=== PATIENT | female | born 2000 | race Caucasian/White ===

== ENCOUNTER 2021-01-19 20:27 | Emergency (ER) | payer BC, MEDICAID ==
[2021-01-19] MEDS ORDERED: Sodium Chloride 0.9% 10 ML Syringe FLUSH PRN (20:45)
[2021-01-19 20:50] VITALS: BP 130/57; PULSE 98
[2021-01-19] MEDS ORDERED: Ondansetron 4 MG/2 ML SDV IVPUSH ONE ×2 (20:55→22:19)
[2021-01-19] MEDS ORDERED: HYDROmorphone 0.5 MG/0.5 ML Syringe IVPUSH ONE (20:55)
--- NOTE | 2021-01-19 21:01 | EDM.PDOC ---
ED HPI GENERAL MEDICAL PROBLEM - General Chief Complaint: OIL EXPLORATION ENGINEER Problem Stated Complaint: 7 wks pg vaginal bleeding abdominal pain Time Seen by Provider: 01/19/21 20:44 Source of Information: Reports: Patient, RN Notes Reviewed History Limitations: Reports: No Limitations - History of Present Illness INITIAL COMMENTS - FREE TEXT/NARRATIVE: Patient is a 20-year-old female who presents to the ED for evaluation of her vaginal bleeding and . Patient notes she is about 7 weeks 2 days . Her last menstrual period was on November 30. She is a and she has not established with OIL EXPLORATION ENGINEER yet. Patient notes that she had sexual intercourse at around noon, and developed some bleeding afterwards which was pink-tinged in color. And then around 6 PM tonight, she started has some low pelvic pain, with radiation into her low back. She states that the whole area feels like it is cramping. She notes that the bleeding has become a little bit darker in color she is wearing a pad but has not saturated through it at this point. Patient denies any dysuria, frequency or urgency. She states she is in quite a bit of pain and has taken 2 tablets of Tylenol but this has not provided much for pain relief. She would rate this at a 8 out of 10. She has not had any fevers or chills, cough or shortness of breath. Lower Pelvic Pain Score (Numeric/FACES): 8 Lower Back Pain Score (Numeric/FACES): 8 Vaginal Pain Score (Numeric/FACES): 6 - Related Data Allergies Allergy/AdvReac Type Severity Reaction Status Date / Time milk Allergy Severe Vomiting Verified 01/19/21 20:44 egg Allergy Severe Vomiting Uncoded 01/19/21 20:44 Home Meds: Home Meds Ondansetron [Zofran ODT] 4 mg PO Q8H PRN #30 tab.dis 01/19/21 [Rx] Pnv No.95/Ferrous Fum/Folic AC [ Tablet] 1 tab PO DAILY 01/19/21 [History] Past Medical History Cardiovascular History: Reports: Other (See Below) Other Cardiovascular History: lump on chest Respiratory History: Reports: Asthma Gastrointestinal History: Reports: Irritable Bowel Syndrome Other Gastrointestinal History: states Lactose intolerant and does not eat eggs Genitourinary History: Reports: UTI, Recurrent Other Genitourinary History: history of UTI x2. OIL EXPLORATION ENGINEER History: Reports: Other (See Below) Other OIL EXPLORATION ENGINEER History: laparoscopy to check for endometriosis; inverted uterus Musculoskeletal History: Reports: Fibromyalgia Other Musculoskeletal History: Pectis-carinatum asymetric Neurological History: Reports: Migraines Psychiatric History: Reports: Anxiety, Depression - Past Surgical History GI Surgical History: Reports: Colonoscopy, EGD Female Surgical History: Reports: Other (See Below) Other Female Surgeries/Procedures: exploratory laparoscopy for endometriosis, was negative Social & Family History - Family History Family Medical History: No Pertinent Family History - Tobacco Use Tobacco Use Status *Q: Former Tobacco User Used Tobacco, but Quit: Yes Month/Year Tobacco Last Used: 7 weeks ago - Caffeine Use Caffeine Use: Reports: Soda, Tea Caffeine Use Comment: 5drinks/day - Recreational Drug Use Recreational Drug Type: Reports: Marijuana/Hashish Recreational Drug Use Frequency: Weekly ED ROS GENERAL - Review of Systems Review Of Systems: Comprehensive ROS is negative, except as noted in HPI. ED EXAM - Physical Exam Exam: See Below Exam Limited By: No Limitations General Appearance: Alert, WD/WN, No Apparent Distress, Anxious (slightly) Eye Exam: Bilateral Eye: EOMI, Normal Inspection, PERRL Respiratory/Chest: No Respiratory Distress, Lungs Clear, Normal Breath Sounds, No Accessory Muscle Use, Chest Non-Tender Cardiovascular: Normal Peripheral Pulses, Regular Rate, Rhythm, No Edema GI/Abdominal Exam: Normal Bowel Sounds, Soft, No Distention, No Mass, Tender (suprapubic tenderness) Extremities: Normal Inspection, Normal Capillary Refill Neurological: Alert, Oriented, Normal Cognition, No Motor/Sensory Deficits Psychiatric: Normal Affect, Normal Mood Skin Exam: Warm, Dry, Intact, Normal Color, No Rash Course - Vital Signs Last Recorded V/S: Last Vital Signs Temp 99.6 F 01/19/21 20:49 Pulse 98 01/19/21 20:49 Resp 20 01/19/21 20:49 BP 130/57 L 01/19/21 20:49 Pulse Ox 100 01/19/21 20:49 - Orders/Labs/Meds Orders: Active Orders 24 hr Category Date Time Status Peripheral IV Care [RC] . DIRECTED Care 01/19/21 20:45 Ordered OB Transvaginal [US] Stat Exams 01/19/21 20:45 Ordered PATIENT RETYPE [BBK] Routine Lab 01/19/21 21:46 Ordered Ondansetron [Zofran] Med 01/19/21 22:19 Once 4 mg IVPUSH ONETIME ONE Sodium Chloride 0.9% [Saline Flush] Med 01/19/21 20:45 Ordered 10 ml FLUSH ASDIRECTED PRN Peripheral IV Insertion Adult [OM.PC] Stat Oth 01/19/21 20:45 Ordered Medication Orders Sodium Chloride (Saline Flush) 10 ml FLUSH ASDIRECTED PRN PRN Reason: Keep Vein Open Last Admin: 01/19/21 21:13 Dose: 10 ml Documented by: [id number] Labs: Laboratory Tests 01/19/21 01/19/21 01/19/21 Range/Units 21:05 21:05 21:05 WBC 10.39 H (3.98-10.04) K/mm3 RBC 4.50 (3.98-5.22) M/mm3 Hgb 13.8 (11.2-15.7) gm/dl Hct 41.1 (34.1-44.9) % MCV 91.3 (79.4-94.8) fl MCH 30.7 (25.6-32.2) pg MCHC 33.6 (32.2-35.5) g/dl RDW Std Deviation 42.8 (36.4-46.3) fL Plt Count 285 (182-369) K/mm3 MPV 11.0 (9.4-12.3) fl Neut % (Auto) 72.8 H (34.0-71.1) % Lymph % (Auto) 17.8 L (19.3-51.7) % Davidson % (Auto) 8.2 (4.7-12.5) % Eos % (Auto) 0.9 (0.7-5.8) Baso % (Auto) 0.2 (0.1-1.2) % Neut # (Auto) 7.57 H (1.56-6.13) K/mm3 Lymph # (Auto) 1.85 (1.18-3.74) K/mm3 Davidson # (Auto) 0.85 H (0.24-0.36) K/mm3 Eos # (Auto) 0.09 (0.04-0.36) K/mm3 Baso # (Auto) 0.02 (0.01-0.08) K/mm3 Manual Slide Review Normal smear HCG, Quant 15572.0 mIU/mL Urine Color (Yellow) Urine Appearance (Clear) Urine pH (5.0-8.0) Ur Specific [place] (1.005-1.030) Urine Protein (Negative) Urine Glucose (UA) (Negative) Urine Ketones (Negative) Urine Occult Blood (Negative) Urine Nitrite (Negative) Urine Bilirubin (Negative) Urine Urobilinogen (0.2-1.0) Ur Leukocyte Esterase (Negative) Urine RBC (0-5) /hpf Urine WBC (0-5) /hpf Ur Squamous Epith Cells (0-5) /hpf Urine Bacteria (FEW) /hpf Urine Mucus (FEW) /hpf Blood Type O POSITIVE 01/19/21 Range/Units 21:23 WBC (3.98-10.04) K/mm3 RBC (3.98-5.22) M/mm3 Hgb (11.2-15.7) gm/dl Hct (34.1-44.9) % MCV (79.4-94.8) fl MCH (25.6-32.2) pg MCHC (32.2-35.5) g/dl RDW Std Deviation (36.4-46.3) fL Plt Count (182-369) K/mm3 MPV (9.4-12.3) fl Neut % (Auto) (34.0-71.1) % Lymph % (Auto) (19.3-51.7) % Davidson % (Auto) (4.7-12.5) % Eos % (Auto) (0.7-5.8) Baso % (Auto) (0.1-1.2) % Neut # (Auto) (1.56-6.13) K/mm3 Lymph # (Auto) (1.18-3.74) K/mm3 Davidson # (Auto) (0.24-0.36) K/mm3 Eos # (Auto) (0.04-0.36) K/mm3 Baso # (Auto) (0.01-0.08) K/mm3 Manual Slide Review HCG, Quant mIU/mL Urine Color Dark yellow (Yellow) Urine Appearance Clear (Clear) Urine pH 6.0 (5.0-8.0) Ur Specific [place] > or = 1.030 (1.005-1.030) Urine Protein 2+ H (Negative) Urine Glucose (UA) Negative (Negative) Urine Ketones Negative (Negative) Urine Occult Blood 3+ H (Negative) Urine Nitrite Negative (Negative) Urine Bilirubin 1+ H (Negative) Urine Urobilinogen 1.0 (0.2-1.0) Ur Leukocyte Esterase Negative (Negative) Urine RBC 0-5 (0-5) /hpf Urine WBC 0-5 (0-5) /hpf Ur Squamous Epith Cells 0-5 (0-5) /hpf Urine Bacteria Few (FEW) /hpf Urine Mucus Many H (FEW) /hpf Blood Type Meds: Medications Generic Name Dose Route Start Last Admin Trade Name Freq PRN Reason Stop Dose Admin Sodium Chloride 10 ml 01/19/21 20:45 01/19/21 21:13 Saline Flush FLUSH 10 ml ASDIRECTED PRN Administration Keep Vein Open Discontinued Medications Generic Name Dose Route Start Last Admin Trade Name Freq PRN Reason Stop Dose Admin Hydromorphone HCl 0.5 mg 01/19/21 20:55 01/19/21 21:11 Dilaudid IVPUSH 01/19/21 20:56 0.5 mg ONETIME ONE Administration Ondansetron HCl 4 mg 01/19/21 20:55 01/19/21 21:12 Zofran IVPUSH 01/19/21 20:56 4 mg ONETIME ONE Administration Ondansetron HCl 4 mg 01/19/21 22:19 Zofran IVPUSH 01/19/21 22:20 ONETIME ONE - Re-Assessments/Exams Free Text/Narrative Re-Assessment/Exam: 01/19/21 21:01 Patient presents to the ED for her vaginal bleeding and , we will get a transvaginal ultrasound, get a IV established, get some baseline labs, she was in quite a bit of pain we will give her 0.5 mg IV Dilaudid and 4 mg IV Zofran. 01/19/21 21:52 Patient's laboratory evaluation demonstrates a mildly elevated white count at 10.39. urinalysis is clear for any infection, culture will be sent as there was some blood in the urine just to make sure this is not more of a hemorrhagic cystitis. Patient's blood type is O+. Dr. Tate and I preliminarily looked at it on Still awaiting hCG quantitative level, ultrasound has been done, the PACS system, and there does appear to be an embryo within the uterus, with a heartbeat of 117 bpm. Official radiology read is still pending. 01/19/21 21:57 The hCG quantitative level was 84,180. 01/19/21 22:09 Ultrasound that was done transabdominally, reports a gestational age of 6 weeks 6 days with an estimated due date of 09/09/2021, there is a normal heart rate at 117 bpm. This is in line with the gestational age the patient reported. I did call Dr. Chavis and went over the results, and she feels it would be appropriate to have her do her first OB follow-up in about a month, but earlier if she is having any issues. She would be more than glad to see the patient in consultation however she states that she can see whoever she would like. Departure - Departure Time of Disposition: 22:10 Disposition: Home, Self-Care 01 Condition: Good Clinical Impression: Vaginal bleeding affecting early - Discharge Information *PRESCRIPTION DRUG MONITORING PROGRAM REVIEWED*: No *COPY OF PRESCRIPTION DRUG MONITORING REPORT IN PATIENT DAVID: No Prescriptions: Ondansetron [Zofran ODT] 4 mg PO Q8H PRN #30 tab.dis PRN Reason: Nausea Instructions: Vaginal Bleeding During , First Trimester, [id number] Referrals: Jammie Mcmanus MD [Primary Care Provider] - Forms: ED Department Discharge Additional Instructions: You were evaluated in the ER today regarding your abdominal pain/vaginal bleeding in . You did have some labs drawn, and these were within normal limits, your hCG level was 84,180, your blood type is O+. Your ultrasound demonstrated an intrauterine gestation with a heart rate of 117 bpm. Recommend that you do not lift anything heavier than a gallon of milk (5 lbs), do not engage in sexual activities, try to get as much pelvic rest as possible for the next few days. Please try not to exert yourself, rest and relax, and take it easy. If you are bleeding through more than 1-2 maxi pads every couple hours, this would be cause for concern to return to the ER for immediate management. You were given a prescription for Zofran, for your nausea, you can take 1 tablet dissolvable under your tongue every 8 hours as needed. Please follow up with your OIL EXPLORATION ENGINEER at your next scheduled appointment. I did consult our OIL EXPLORATION ENGINEER on-call about your case, Dr. Jacey Chavis she is located at the [facility], and she believes it would be appropriate to have your first OIL EXPLORATION ENGINEER appointment in about 4 weeks. Since you do not have an OIL EXPLORATION ENGINEER already set up, there are multiple providers in this area; you may call [phone] to obtain an appointment at the [facility] or [phone] to set up at [facility] in [place]. Please return to the ED at any time if your symptoms change or worsen. Sepsis Event Note (ED) - Evaluation Sepsis Screening Result: No Definite Risk - Focused Exam Vital Signs: Vital Signs Temp Pulse Resp BP Pulse Ox 01/19/21 20:49 99.6 F 98 20 130/57 L 100 - My Orders Last 24 Hours: My Active Orders 01/19/21 20:45 Peripheral IV Care [RC] . DIRECTED OB Transvaginal [US] Stat Sodium Chloride 0.9% [Saline Flush] 10 ml FLUSH ASDIRECTED PRN Peripheral IV Insertion Adult [OM.PC] Stat 01/19/21 21:46 PATIENT RETYPE [BBK] Routine 01/19/21 22:19 Ondansetron [Zofran] 4 mg IVPUSH ONETIME ONE - Assessment/Plan Last 24 Hours: My Active Orders 01/19/21 20:45 Peripheral IV Care [RC] . DIRECTED OB Transvaginal [US] Stat Sodium Chloride 0.9% [Saline Flush] 10 ml FLUSH ASDIRECTED PRN Peripheral IV Insertion Adult [OM.PC] Stat 01/19/21 21:46 PATIENT RETYPE [BBK] Routine 01/19/21 22:19 Ondansetron [Zofran] 4 mg IVPUSH ONETIME ONE
--- NOTE | 2021-01-20 08:05 | US ---
First trimester obstetrical ultrasound: Multiple real-time images were obtained transvaginally. Comparison: No prior study is available. Dates: Working JOCELYN: 09/06/21, gestational age 7 weeks 1 day Current ultrasound: JOCELYN 09/09/21, gestational age 6 weeks 5 days Single intrauterine gestational sac is seen. Small embryo is seen. No subchorionic hemorrhage is noted. Maternal ovaries are within normal limits. Measurements: Aten-rump length: 0.79 cm - 6 weeks 5 days Heart rate: 117 bpm Impression: 1. Single intrauterine fetus. Dates as noted above. 2. Heart rate is low most likely relating to the age of . Nothing acute is appreciated. Diagnostic code #1 I agree with preliminary report from [facility], finalized on 01/19/21, 11:03 PM LEVER OPERATOR
== END 2021-01-19 22:50 | disposition home or self-care (01) ==
LOC: JD.ED 20:27 → SUPCPDRO 20:27 → JD.ED 22:50
DX: O20.9 Hemorrhage in early pregnancy, unspecified (principal); O99.511 Diseases of the respiratory system complicating pregnancy, first trimester; J45.909 Unspecified asthma, uncomplicated; Z91.011 Allergy to milk products; Z91.012 Allergy to eggs; Z3A.01 Less than 8 weeks gestation of pregnancy; Z87.891 Personal history of nicotine dependence
CPT/HCPCS: 36415; 76817; 81001; 84702; 85025; 86900; 86901; 96374; 96375; 96376; 99284; J1170; J2405

== ENCOUNTER 2021-03-11 22:54 | Emergency (ER) | payer MEDICAID ==
[2021-03-11 23:10] VITALS: BP 150/63; PULSE 97
--- NOTE | 2021-03-11 23:42 | EDM.PDOC ---
ED HPI GENERAL MEDICAL PROBLEM - General Chief Complaint: LEAF STAMPER Problem Stated Complaint: 14 WKS & CRAMPING Time Seen by Provider: 03/11/21 23:08 Source of Information: Reports: Patient, Significant Other (Boyfriend) History Limitations: Reports: No Limitations - History of Present Illness INITIAL COMMENTS - FREE TEXT/NARRATIVE: Ms. Mcmanus is a 20-year-old woman who is currently 14 weeks 0 days gestation, JOCELYN 09/09/2021, based on an obstetric ultrasound dated 01/19/2021, LMP 11/30/2020, G1, P0, who now presents the ED stating that she developed pelvic cramps yesterday. The cramps radiate into her lower back. They have been waxing and waning, improved if she walks, but worse if she bears down to defecate. No vaginal bleeding. No urinary symptoms. No recent fever. The patient did not take any [id number] medications, however, she does acknowledge that she smokes marijuana daily. The patient states that she had similar symptoms about 1 month ago, which resolved on their own. Here in the ED tonight, the patient's initial BP is found to be mildly elevated at 150/63, otherwise, she is hemodynamically stable, afebrile, saturating 98% on room air. The patient states that she recently got over a cold, including rhinorrhea and cough. Otherwise, prior to yesterday, the patient denies having a recent fever, chills, sore throat, ear pain, nasal or sinus congestion, cough, dyspnea, chest pain, palpitations, nausea, vomiting, constipation, diarrhea, abdominal pain, urinary symptoms, recent weight gain or weight loss, recent bloody bowel movements or black bowel movements, recent joint aches, headaches, or rashes. The patient's PCP is Corazon Mike NP, in [place]. Her LEAF STAMPER is Dr. Jammie Mcmanus, in [place], [place]. Abdomen Pain Score (Numeric/FACES): 6 - Related Data Allergies Allergy/AdvReac Type Severity Reaction Status Date / Time milk Allergy Severe Vomiting Verified 03/11/21 23:12 sertraline [From Zoloft] Allergy Rash Verified 03/11/21 23:12 egg Allergy Severe Vomiting Uncoded 03/11/21 23:12 Home Meds: Home Meds . [No Known Home Meds] 03/11/21 [History] Past Medical History Respiratory History: Reports: Asthma (suspected, not PFT-tested) Gastrointestinal History: Reports: Irritable Bowel Syndrome : 1 Para: 0 Other LEAF STAMPER History: laparoscopy to check for endometriosis; inverted uterus Neurological History: Reports: Migraines Psychiatric History: Reports: Anxiety (untreated), Depression (untreated), Other (See Below) (Fibromyalgia) - Past Surgical History HEENT Surgical History: Reports: Oral Surgery (dental extractions) GI Surgical History: Reports: Colonoscopy (x 1), EGD (x 1) Female Surgical History: Reports: Other (See Below) (Exploratory laparoscopy for endometriosis -> negative) Social & Family History - Tobacco Use Tobacco Use Status *Q: Former Tobacco User Tobacco Use Within Last Twelve Months: Vaping (Nicotine, THC, and CBD) Years of Tobacco use: 4 Packs/Tins Daily: 1.5 Month/Year Tobacco Last Used: Quit Jan 2021 Tobacco Use Comment: Started smoking at 16 yrs old - Caffeine Use Caffeine Use: Reports: Soda, Tea Caffeine Use Comment: 5drinks/day - Alcohol Use Alcohol Use History: Yes Alcohol Use Frequency: Socially (when not ) - Recreational Drug Use Recreational Drug Use: Yes Drug Use in Last 12 Months: Yes Recreational Drug Type: Reports: Marijuana/Hashish (smokes daily) - Living Situation & Occupation Living situation: Reports: Single, with Significant Other (Boyfriend) Occupation: Unemployed ED ROS GENERAL - Review of Systems Review Of Systems: Comprehensive ROS is negative, except as noted in HPI. ED EXAM - Physical Exam Exam: See Below Exam Limited By: No Limitations General Appearance: Alert, Anxious (the patient quickly alternates between being overly dramatic and perfectly calm), Thin Eye Exam: Bilateral Eye: EOMI, Normal Inspection Ears: Normal External Exam, Hearing Grossly Normal Nose: Normal Inspection Throat/Mouth: Normal Inspection, Normal Lips, Normal Voice, No Airway Compromise Head: Atraumatic, Normocephalic Neck: Normal Inspection, Full Range of Motion Respiratory/Chest: No Respiratory Distress, Lungs Clear, Normal Breath Sounds, No Accessory Muscle Use Cardiovascular: Normal Peripheral Pulses, Regular Rate, Rhythm, No Edema, No Gallop, No JVD, No Murmur, No Rub GI/Abdominal Exam: Normal Bowel Sounds, Soft, No Organomegaly, No Distention, No Abnormal Bruit, No Mass, Tender (Across the entire abdomen, with greater tenderness in the lower abdomen than the upper), Mass (gravid uterus consistent with dates) Back Exam: Normal Inspection, Full Range of Motion, NT Extremities: Normal Inspection, Normal Range of Motion, No Pedal Edema, Normal Capillary Refill Neurological: Alert, Oriented, Normal Cognition, No Motor/Sensory Deficits Psychiatric: Anxious Skin Exam: Warm, Dry, Intact, Normal Color, No Rash Course - Vital Signs Last Recorded V/S: Last Vital Signs Temp 36.6 C 03/11/21 23:07 Pulse 97 03/11/21 23:07 Resp 17 03/11/21 23:07 BP 150/63 H 03/11/21 23:07 Pulse Ox 98 03/11/21 23:07 - Orders/Labs/Meds Meds: Medications Discontinued Medications Generic Name Dose Route Start Last Admin Trade Name Raya PRN Reason Stop Dose Admin Acetaminophen 650 mg 03/12/21 00:21 03/12/21 00:33 Acetaminophen 325 Mg Tab PO 03/12/21 00:22 650 mg NOW ONE Administration - Re-Assessments/Exams Free Text/Narrative Re-Assessment/Exam: 03/11/21 23:38 As above, the patient, who is 14 weeks 0 days gestation based on an obstetric ultrasound performed on 01/19/2021, has been experiencing waxing and waning pelvic cramps without vaginal bleeding since yesterday. Her symptoms are somewhat improved if she walks, worse if she bears down to have a bowel movement. No other symptoms, such as a fever, vomiting, diarrhea, or urinary symptoms. The patient is very histrionic, at times waving her arms instead of answering a question, then, a few moments later, being perfectly calm, particularly when talking to her boyfriend. On examination, the patient reports tenderness to palpation of her entire abdomen, greater in the pelvic region than the upper abdomen. I have ordered heart tones. 03/12/21 00:18 The patient's heart rate is 165 bpm. 03/12/21 00:21 heart rate discussed with the patient and her boyfriend. She appears to be suffering from round ligament pain. I explained that, other than acetaminophen, there are no medicines that we can safely give to treat cramps, such as a muscle relaxant. I recommended therefore that she contact her LEAF STAMPER in [place] tomorrow, as her LEAF STAMPER may have more leeway to prescribe medications that would not be appropriate for me to do so. The patient is agreeable. She will be given acetaminophen prior to discharge. Departure - Departure Time of Disposition: 00:23 Disposition: Home, Self-Care 01 Condition: Good Clinical Impression: Pain of round ligament during - Discharge Information *PRESCRIPTION DRUG MONITORING PROGRAM REVIEWED*: Not Applicable *COPY OF PRESCRIPTION DRUG MONITORING REPORT IN PATIENT DAVID: Not Applicable Instructions: Round Ligament Pain, Pelvic Pain, Female, [id number] Referrals: Jammie Mcmanus MD [Primary Care Provider] - Corazon Mike NP [Ordering Only Provider] - Forms: ED Department Discharge Additional Instructions: You were seen in the emergency room after developing pelvic cramps yesterday, in the setting of being 14 weeks . heart rate were measured at 165 bpm, which is normal for the gestational age. Based on your history, physical exam, and heart rate, you are most likely suffering from round ligament pain, previously known as discomfort of . As discussed, unfortunately, the only medicine that you can safely take to treat round ligament pain is acetaminophen (Tylenol). We recommend that you follow-up with your LEAF STAMPER, Dr. Jammie Mcmanus, in [place], [place], at the next available appointment. If any other problems, please do not hesitate to return to the ER. Sepsis Event Note (ED) - Evaluation Sepsis Screening Result: No Definite Risk - Focused Exam Vital Signs: Vital Signs Temp Pulse Resp BP Pulse Ox 03/11/21 23:07 36.6 C 97 17 150/63 H 98
[2021-03-12] MEDS ORDERED: Acetaminophen 325 MG Tab PO ONE (00:21)
== END 2021-03-12 00:36 | disposition home or self-care (01) ==
LOC: JD.ED 22:54
DX: O99.891 Other specified diseases and conditions complicating pregnancy (principal); R10.2 Pelvic and perineal pain; O99.512 Diseases of the respiratory system complicating pregnancy, second trimester; J45.909 Unspecified asthma, uncomplicated; Z87.891 Personal history of nicotine dependence; Z91.011 Allergy to milk products; Z88.8 Allergy status to other drugs, medicaments and biological substances; Z91.012 Allergy to eggs; Z3A.14 14 weeks gestation of pregnancy
CPT/HCPCS: 99283; A9270; 99282

== ENCOUNTER 2021-08-30 23:25 | Inpatient (IN) | payer MEDICAID ==
[2021-08-31] MEDS ORDERED: Morphine 2 MG/ML SYRINGE ONE (01:51)
[2021-08-31] MEDS ORDERED: Lactated Ringers 1,000 ML ONE (01:51)
[2021-08-31] MEDS ORDERED: Morphine 2 MG/ML SYRINGE IVPUSH PRN (01:53)
[2021-08-31] MEDS ORDERED: Oxytocin/Lactated Ringers 10 UNIT/1,000 ML BAG IV SCH ×2 (01:54→15:22)
[2021-08-31] MEDS ORDERED: Acetaminophen 325 MG Tab PO PRN ×2 (01:54→15:22)
[2021-08-31] MEDS ORDERED: Nalbuphine 10 MG/1 ML Vial IVPUSH PRN (01:54)
[2021-08-31] MEDS ORDERED: Sodium Chloride 0.9% 10 ML Syringe FLUSH PRN (01:54)
[2021-08-31] MEDS: Lactated Ringers 1,000 ML IV SCH ×3 (02:00→06:00)
--- NOTE | 2021-08-31 02:09 | PCM.LDHP ---
L&D History of Present Illness - General Date of Service: 08/31/21 Admit Problem/Dx: Patient Status Order with Admit Dx/Problem 08/31/21 01:54 Patient Status [ADT] Routine Admission Diagnosis/Problem Admission Diagnosis/Problem demise, greater than 22 weeks, antepartum Source of Information: Patient History Limitations: Reports: No Limitations - History of Present Illness Introduction:: Isa Mcmanus is a 21-year-old at 38 weeks 4 days (JOCELYN 09/10/2021) by a 7- week ultrasound who presents with pelvic pain and cramping as well has contractions. She reports that she has been having contractions since the afternoon of 09-18 at around 11 AM. They have gotten progressively worse throughout the day. She states that they are quite painful and are occurring every couple of minutes. She has not really been timing the contractions. She states that she has not felt the baby move for the last 2 to 3 days. She rep orts that she has been having a small amount of bloody discharge with going to the bathroom and wiping but denies any leaking of fluid or vaginal bleeding. She reports that she was first diagnosed with COVID-19 infection on 08/24/2021 and was treated with Regeneron monoclonal antibodies at that time. She had cough and sore throat symptoms at her visit on 08/12/2021 but her COVID- 19 swab was negative at that time. She reports that she did have fevers at home into the low 100s F but it improved with Tylenol on 08/25-08/27. She has been feeling pretty well for the last few days but has only had an ongoing cough. She denies any shortness of breath or difficulty with breathing. She reports that she has been having whole body itching on her abdomen and low back for several days. She reports that she has been having some pain with urination but denies any urinary frequency or urgency. Denies any problems with bowel movements. There was concern for possible demise as the heart tones were not able to be heard with Doppler monitors. Bedside ultrasound performed confirmed demise without any cardiac activity, lack of blood flow through circulatory system on color Doppler and no movement noted. Patient became very distraught after being informed of demise. Timing/Duration: Reports: gradual onset, intermittent (Pain and contractions), getting worse Location, : Reports: Lower back, Pelvic Quality: Reports: Pressure, Stabbing, Throbbing Severity: Severe Associated Symptoms: Reports: vaginal bleeding (Small amount with using the restroom). Denies: vaginal discharge, vaginal fluid Present Illness Comments:: Isa Mcmanus is a 21-year-old at 38 weeks 4 days (JOCELYN 09/10/2021) by a 7- week ultrasound who presents with labor and demise. She has had routine care with Dr. Chavis. Her had been overall uncomplicated until diagnosis with COVID-19 on 08/24/2021. She was treated with Regeneron monoclonal antibodies at that time and continued to have mild symptoms from 08/25-08/27. She has ongoing cough at this time and had fevers over the first part of the week. She was using Tylenol and it helped with her fevers at that time. Patient was noted to have normal heart tones at her appointment on 08/27/2021. Only concern regarding the was marginal cord insertion with normal growth noted on ultrasounds. She received Tdap on 06/30/2021. She has not received the influenza vaccine during this . Her is complicated by: * COVID-19 infection first diagnosed on 08/24/2021 and treated with Regeneron monoclonal antibodies at that time. Patient reports that her symptoms mostly resolved by 3 days after treatment. 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 , stillbirth diagnosed at 38 weeks 4 days confirmed by ultrasound labs Blood type: O+ Antibody screen: Negative First trimester hematocrit/hemoglobin: 43.3%/14.4 on 01/23/2021 Platelets: 295 on 01/23/2021 Rubella status: Immune Hepatitis B surface antigen: Negative RPR: Negative Hepatitis C: Negative HIV: Negative Gonorrhea: Negative Chlamydia: Positive on 01/23/2021 with negative test of cure on 02/26/2021 One hour glucose tolerance test: 51 Second trimester hematocrit/hemoglobin: 35.8%/12.2 on 06/30/2021 Platelets: 353 on 06/30/2021 GBS status: Negative - Related Data Allergies/Adverse Reactions: Allergies Allergy/AdvReac Type Severity Reaction Status Date / Time milk Allergy Severe Vomiting Verified 08/24/21 18:37 ondansetron [From Zofran] Allergy Headache Verified 08/24/21 18:37 sertraline [From Zoloft] Allergy Rash Verified 08/24/21 18:37 egg Allergy Severe Vomiting Uncoded 03/11/21 23:12 Home Medications: Home Meds Doxylamine Succinate [Unisom] 25 mg PO BEDTIME PRN 08/20/21 [History] Vits #93/Iron Fum/FA [ Formula Tablet] 1 tab PO DAILY 08/20/21 [History] Past Medical History - Past Health History Medical/Surgical History: Denies Medical/Surgical History Cardiovascular History: Reports: Other (See Below) Other Cardiovascular History: lump on chest Respiratory History: Reports: Asthma (suspected, not PFT-tested) Gastrointestinal History: Reports: Irritable Bowel Syndrome Other Gastrointestinal History: states Lactose intolerant and does not eat eggs Genitourinary History: Reports: UTI, Recurrent Other Genitourinary History: history of UTI x2. 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: , Other (See Below) : 1 Para: 0 Other OB/BYN History: laparoscopy to check for endometriosis; inverted uterus Musculoskeletal History: Reports: Fibromyalgia Other Musculoskeletal History: Pectis-carinatum asymetric Neurological History: Reports: Migraines Psychiatric History: Reports: Anxiety (untreated), Depression (untreated), Other (See Below) (Fibromyalgia) - Infectious Disease History Infectious Disease History: Reports: None - Past Surgical History HEENT Surgical History: Reports: Oral Surgery (dental extractions) GI Surgical History: Reports: Colonoscopy (x 1), EGD (x 1) Female Surgical History: Reports: Other (See Below) (Exploratory laparoscopy for endometriosis -> negative) Social & Family History - Family History Family Medical History: No Pertinent Family History - Tobacco Use Tobacco Use Status *Q: Former Tobacco User Tobacco Use Within Last Twelve Months: Cigarettes, Vaping - Tobacco Core Measures Tobacco Use/Smoking Within Last 30 Days: No Smokeless Tobacco Use in Last 30 Days: Yes Alternative Nicotine Product Use: Reports: Vaping - Caffeine Use Caffeine Use: Reports: Soda, Tea Caffeine Use Comment: 5drinks/day - Alcohol Use Alcohol Use History: No - Recreational Drug Use Recreational Drug Use: No Drug Use in Last 12 Months: Yes Recreational Drug Type: Reports: Marijuana/Hashish - Living Situation & Occupation Living situation: Reports: Single, with Significant Other (Boyfriend) Occupation: Unemployed H&P Review of Systems - Review of Systems: Review Of Systems: See Below General: Denies: Fever, Chills, Malaise, Weakness, Fatigue HEENT: Reports: Headaches (Mild intermittent headaches similar to her migraine headaches). Denies: Rhinitis, Post Nasal Drip, Sinus Congestion, Sore Throat, Visual Changes Pulmonary: Reports: Cough. Denies: Shortness of Breath, Wheezing, Pleuritic Chest Pain Cardiovascular: Denies: Chest Pain, Palpitations, Dyspnea on Exertion Gastrointestinal: Denies: Abdominal Pain, Constipation, Diarrhea, Nausea, Vomiting Genitourinary: Reports: Dysuria. Denies: Frequency, Burning, Pain, Urgency Musculoskeletal: Reports: Back Pain Skin: Reports: Pruritis. Denies: Rash, Lesions Psychiatric: Denies: Depression, Anxiety L&D Exam - Exam Exam: See Below - Vital Signs Weight: 94.801 kg - OB Specific Contraction Duration (sec): 60-75 Contraction Frequency (min): 5-6 Contraction Intensity: Strong Movement: Not Appreciated Heart Tones: Not [place] Heart Tones per Min: 0 ( demise confirmed with bedside U/S with no cardiac activity, no bloodflow noted with color Doppler evaluation of circulatory system and no movement noted on exam) Presentation: Vertex - Yanes Score Yanes Score Cervix Position: Midposition Yanes Score Consistency: Soft Yanes Score Effacement: >80% (80%) Yanes Score Dilation: 3-4 cm (3 cm) Yanes Score Infant's Station: -1 ,0 (0) Yanes Score Total: 10 - Exam General: Alert, Oriented, Moderate Distress (After being told of demise) HEENT: Conjunctiva Clear, EOMI Neck: Supple, Trachea Midline Lungs: Clear to Auscultation, Normal Respiratory Effort Cardiovascular: Regular Rate, Regular Rhythm GI/Abdominal Exam: Soft, Non-Tender, No Distention, Other (Gravid). No: Guardin g, Rigid, Rebound Genitourinary: Normal external exam Extremities: Normal Inspection, No Pedal Edema Skin: Warm, Dry, Intact Psychiatric: Alert, Normal Affect, Normal Mood - Patient Data Result Diagrams: 08/31/21 02:22 - Problem List (1) 38 weeks gestation of SNOMED Code(s): 04060769 ICD Code: Z3A.38 - 38 WEEKS GESTATION OF Status: Acute Current Visit: Yes (2) demise, greater than 22 weeks, antepartum SNOMED Code(s): 449219609, 938673523 ICD Code: O36.4XX0 - MATERNAL CARE FOR INTRAUTERINE , NOT APPLICABLE OR UNSP Status: Acute Current Visit: Yes (3) COVID-19 affecting in third trimester SNOMED Code(s): 476295794, 718884030 ICD Code: O98.513 - OTHER VIRAL DISEASES COMPLICATING , THIRD TRIMESTER; U07.1 - COVID-19 Status: Acute Current Visit: Yes (4) Chlamydia infection affecting in first trimester SNOMED Code(s): 45271201, 105895274 ICD Code: O98.811 - OTH MATERNAL INFEC/PARASTC DISEASES COMP PREG, FIRST TRI; A74.9 - CHLAMYDIAL INFECTION, UNSPECIFIED Status: Acute Current Visit: Yes Problem List Initiated/Reviewed/Updated: Yes Orders Last 24hrs: Active Orders 24 hr Category Date Time Status Patient Status [ADT] Routine ADT 08/31/21 01:54 Active Activity as Tolerated [RC] PFP Care 08/31/21 01:54 Active Communication Order [RC] ASDIRECTED Care 08/31/21 01:54 Active Non Stress Test [RC] PER UNIT ROUTINE Care 08/30/21 23:32 Active Notify Provider Vital Signs [RC] PRN Care 08/31/21 01:54 Active Notify Provider [RC] PFP Care 08/31/21 01:54 Active Notify Provider [RC] PRN Care 08/31/21 01:54 Active Peripheral IV Care [RC] . DIRECTED Care 08/31/21 01:54 Active Pump Management, Intrathecal [RC] ASDIRECTED Care 08/31/21 01:54 Active Vital Signs [RC] PER UNIT ROUTINE Care 08/30/21 23:32 Active Vital Signs [RC] PER UNIT ROUTINE Care 08/31/21 01:54 Active ANTICARDIOLIPIN AB, IGG/M, QN [REF] Routine Lab 08/31/21 01:54 Ordered BETA-2 GLYCOPROTEIN I AB,G/M [REF] Routine Lab 08/31/21 01:54 Ordered CBC WITH AUTO DIFF [HEME] Routine Lab 08/31/21 01:54 Ordered COMPREHENSIVE METABOLIC PN,CMP [CHEM] Routine Lab 08/31/21 01:54 Ordered DRUG SCREEN, URINE [URCHEM] Routine Lab 08/31/21 01:54 Ordered GLYCOSYLATED HEMOGLOBIN,HGBA1C [CHEM] Routine Lab 08/31/21 01:54 Ordered LACTATE DEHYDROGENASE,LDH [CHEM] Routine Lab 08/31/21 01:54 Ordered LUPUS ANTICOAGULANT PANEL [REF] Routine Lab 08/31/21 01:54 Ordered PROTEIN/CREATININE RATIO,URINE [URCHEM] Routine Lab 08/31/21 01:54 Ordered RAPID PLASMA REAGIN,RPR [CHEM] Routine Lab 08/31/21 01:54 Ordered T4 FREE [CHEM] Routine Lab 08/31/21 01:54 Ordered TSH [CHEM] Routine Lab 08/31/21 01:54 Ordered TYPE AND SCREEN [BBK] Routine Lab 08/31/21 01:54 Ordered Acetaminophen [TylenoL] Med 08/31/21 01:54 Active 650 mg PO Q6H PRN Lactated Ringers [Ringers, Lactated] 1,000 ml Med 08/31/21 01:54 Active IV ASDIRECTED Morphine Med 08/31/21 01:53 Active 2 mg IVPUSH Q2H PRN Nalbuphine [Nubain] Med 08/31/21 01:54 Active 10 mg IVPUSH Q2H PRN Oxytocin/Lactated Ringers [Pitocin in LR 10 Units/1,000 Med 08/31/21 01:54 Active ML] 10 unit in 1,000 ml IV .CONTINUOUS Sodium Chloride 0.9% [Saline Flush] Med 08/31/21 01:54 Active 10 ml FLUSH ASDIRECTED PRN Peripheral IV Insertion Adult [OM.PC] Routine Oth 08/31/21 01:54 Ordered Resuscitation Status Routine Resus Stat 08/30/21 23:32 Ordered Medication Orders Acetaminophen (Acetaminophen 325 Mg Tab) 650 mg PO Q6H PRN PRN Reason: Pain (Mild 1-3) and fever Lactated Ringer's (Ringers, Lactated) 1,000 mls @ 100 mls/hr IV ASDIRECTED FAUSTION Oxytocin/Lactated Ringer's (Pitocin In Lr 10 Units/1,000 Ml) 10 unit in 1,000 mls @ 100 mls/hr IV .CONTINUOUS FAUSTINO Morphine Sulfate (Morphine 2 Mg/Ml Syringe) 2 mg IVPUSH Q2H PRN PRN Reason: Pain (severe 7-10) Nalbuphine HCl (Nalbuphine 10 Mg/1 Ml Vial) 10 mg IVPUSH Q2H PRN PRN Reason: Pain Sodium Chloride (Sodium Chloride 0.9% 10 Ml Syringe) 10 ml FLUSH ASDIRECTED PRN PRN Reason: Keep Vein Open Assessment/Plan Comment:: Isa Mcmanus is a 21-year-old at 38 weeks 4 days with early labor and demise confirmed by bedside ultrasound, complicated by recent COVID-19 infection with first diagnosis on 08/24/2021 and treated at that time, chlamydia infection in early , excessive weight gain in , tobacco use in early and vaping throughout , marijuana use in , history of migraines and history of anxiety and depression not on m edications Patient was counseled on findings on bedside ultrasound that were consistent with demise with lack of cardiac activity, no circulation noted on Doppler evaluation of the circulatory system and no movement noted. There was only a small amount of fluid noted on exam. in vertex presentation on ultrasound exam. Patient was counseled on recommendations for genetic evaluation with chromosomal analysis and autopsy. Patient uncertain of testing that she would like to do at this time. We will address again after delivery of the infant. Refer to observation for spontaneous labor with cervical change Start Pitocin for augmentation of labor if contractions do not increase in frequency or cause cervical change Continuous tocometer monitoring Place IV and have Lactated Ringer's at 125 ml/hr May have small amounts of regular diet Activity as tolerated May have epidural as desired Obtain labs for demise including CBC, CMP, LDH, urine protein/creatinine ratio, type and screen, Kleihauer-Betke test, RPR for syphilis evaluation, TSH, free T4, hemoglobin A1c, urine drug screen, evaluation for antiphospholipid syndrome with lupus anticoagulation panel, anticardiolipin antibodies and beta-2 glycoprotein antibodies, and bile acids due to itching Patient may use morphine 2 mg IV every 2 hours as needed for breakthrough pain Anticipate vaginal delivery unless otherwise indicated Reginaldo Mccall MD 2:58 AM 08/31/2021
[2021-08-31 02:56] LABS: HEMOGLOBIN A1C 5.3 %
[2021-08-31] MEDS ORDERED: diphenhydrAMINE 50 MG/ML SDV IVPUSH PRN (03:23)
[2021-08-31] MEDS ORDERED: ePHEDrine 50 MG/ML SDV IVPUSH PRN (03:23)
[2021-08-31] MEDS ORDERED: fentaNYL 100 MCG/2 ML SDV EPIDUR PRN (03:23)
[2021-08-31] MEDS ORDERED: Bupivacaine 0.25% 10 ML SDV ONE (03:25)
--- NOTE | 2021-08-31 03:33 | PCM.PREANE ---
Preanesthetic Assessment - Procedure Proposed Procedure: Labor epidural - demise - Anesthesia/Transfusion/Family Hx Anesthesia History: Prior Anesthesia Without Reaction Family History of Anesthesia Reaction: No Transfusion History: No Prior Transfusion(s) Intubation History: Unknown - Review of Systems General: Chills Pulmonary: Cough Cardiovascular: No Symptoms Gastrointestinal: Abdominal Pain (uterine contractions) Neurological: Headache (mild) Other: Reports: Easy Bruising, Depression, Anxiety - Physical Assessment NPO Status Date: 08/31/21 NPO Status Time: 03:15 Vital Signs: 143/84 HR 76 20 98.7 100% Height: 1.75 m Weight: 94.801 kg ASA Class: 2 Mental Status: Alert & Oriented x3 Airway Class: Mallampati = 2 Dentition: Reports: Caries Thyro-Mental Finger Breadths: 3 Mouth Opening Finger Breadths: 2 ROM/Head Extension: Full Lungs: Normal Respiratory Effort, Wheezing Cardiovascular: Regular Rate, Regular Rhythm - Lab Values: Laboratory Last Values WBC 11.49 K/mm3 (3.98-10.04) H 08/31/21 02:22 RBC 3.99 M/mm3 (3.98-5.22) 08/31/21 02:22 Hgb 12.4 gm/dl (11.2-15.7) 08/31/21 02:22 Hct 37.1 % (34.1-44.9) 08/31/21 02:22 MCV 93.0 fl (79.4-94.8) 08/31/21 02:22 MCH 31.1 pg (25.6-32.2) 08/31/21 02:22 MCHC 33.4 g/dl (32.2-35.5) 08/31/21 02:22 RDW Std Deviation 47.0 fL (36.4-46.3) H 08/31/21 02:22 Plt Count 301 K/mm3 (182-369) 08/31/21 02:22 MPV 10.3 fl (9.4-12.3) 08/31/21 02:22 Neut % (Auto) 80.1 % (34.0-71.1) H 08/31/21 02:22 Lymph % (Auto) 13.1 % (19.3-51.7) L 08/31/21 02:22 [place] % (Auto) 5.8 % (4.7-12.5) 08/31/21 02:22 Eos % (Auto) 0.4 (0.7-5.8) L 08/31/21 02:22 Baso % (Auto) 0.3 % (0.1-1.2) 08/31/21 02:22 Neut # (Auto) 9.21 K/mm3 (1.56-6.13) H 08/31/21 02:22 Lymph # (Auto) 1.50 K/mm3 (1.18-3.74) 08/31/21 02:22 [place] # (Auto) 0.67 K/mm3 (0.24-0.36) H 08/31/21 02:22 Eos # (Auto) 0.05 K/mm3 (0.04-0.36) 08/31/21 02:22 Baso # (Auto) 0.03 K/mm3 (0.01-0.08) 08/31/21 02:22 Sodium 140 mEq/L (136-145) 08/31/21 02:22 Potassium 3.8 mEq/L (3.5-5.1) 08/31/21 02:22 Chloride 105 mEq/L (98-107) 08/31/21 02:22 Carbon Dioxide 24 mEq/L (21-32) 08/31/21 02:22 Anion Gap 14.8 (5-15) 08/31/21 02:22 BUN 11 mg/dL (7-18) 08/31/21 02:22 Creatinine 1.1 mg/dL (0.55-1.02) H 08/31/21 02:22 Est Cr Clr Drug Dosing 84.55 mL/min 08/31/21 02:22 Estimated GFR (MDRD) > 60 mL/min (>60) 08/31/21 02:22 BUN/Creatinine Ratio 10.0 (14-18) L 08/31/21 02:22 Glucose 93 mg/dL (70-99) 08/31/21 02:22 Hemoglobin A1c 5.3 % (-5.6) 08/31/21 02:22 Calcium 8.0 mg/dL (8.5-10.1) L 08/31/21 02:22 Total Bilirubin 0.3 mg/dL (0.2-1.0) 08/31/21 02:22 AST 34 U/L (15-37) 08/31/21 02:22 ALT 33 U/L (14-59) 08/31/21 02:22 Alkaline Phosphatase 280 U/L (46-116) H 08/31/21 02:22 Lactate Dehydrogenase 426 U/L (81-234) H 08/31/21 02:22 Total Protein 6.4 g/dl (6.4-8.2) 08/31/21 02:22 Albumin 2.6 g/dl (3.4-5.0) L 08/31/21 02:22 Globulin 3.8 gm/dL 08/31/21 02:22 Albumin/Globulin Ratio 0.7 (1-2) L 08/31/21 02:22 Free T4 1.07 ng/dL (0.76-1.46) 08/31/21 02:22 TSH 3rd Generation 3.777 uIU/mL (0.358-3.74) H 08/31/21 02:22 - Allergies Allergies/Adverse Reactions: Allergies Allergy/AdvReac Type Severity Reaction Status Date / Time milk Allergy Severe Vomiting Verified 08/24/21 18:37 ondansetron [From Zofran] Allergy Headache Verified 08/24/21 18:37 sertraline [From Zoloft] Allergy Rash Verified 08/24/21 18:37 egg Allergy Severe Vomiting Uncoded 03/11/21 23:12 - Acknowledgements Anesthesia Type Planned: Epidural Pt an Appropriate Candidate for the Planned Anesthesia: Yes Alternatives and Risks of Anesthesia Discussed w Pt/Guardian: Yes Pt/Guardian Understands and Agrees with Anesthesia Plan: Yes PreAnesthesia Questionnaire - Past Health History Medical/Surgical History: Denies Medical/Surgical History Cardiovascular History: Reports: Other (See Below) Other Cardiovascular History: lump on chest Respiratory History: Reports: Asthma (suspected, not PFT-tested), Other (See Below) (COVID 08/24/21) Gastrointestinal History: Reports: GERD, Irritable Bowel Syndrome Other Gastrointestinal History: states Lactose intolerant and does not eat eggs Genitourinary History: Reports: UTI, Recurrent Other Genitourinary History: history of UTI x2. 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: , Other (See Below) Other OB/BYN History: laparoscopy to check for endometriosis; inverted uterus Musculoskeletal History: Reports: Fibromyalgia Other Musculoskeletal History: Pectis-carinatum asymetric Neurological History: Reports: Migraines Psychiatric History: Reports: Anxiety (untreated), Depression (untreated), Other (See Below) (Fibromyalgia) Endocrine/Metabolic History: Reports: None Hematologic History: Reports: None Immunologic History: Reports: Other (See Below) Other Immunologic History: COVID Oncologic (Cancer) History: Reports: None Dermatologic History: Reports: None - Infectious Disease History Infectious Disease History: Reports: None - Past Surgical History HEENT Surgical History: Reports: Oral Surgery (dental extractions) GI Surgical History: Reports: Colonoscopy (x 1), EGD (x 1) Female Surgical History: Reports: Other (See Below) (Exploratory laparoscopy for endometriosis -> negative) - SUBSTANCE USE Tobacco Use Status *Q: Former Tobacco User Tobacco Use Within Last Twelve Months: Cigarettes, Vaping Second Hand Smoke Exposure: No Days Per Week of Alcohol Use: 0 Number of Drinks Per Day: 0 Total Drinks Per Week: 0 Recreational Drug Use History: No Recreational Drug Type: Reports: Marijuana/Hashish - HOME MEDS Home Medications: Home Meds Doxylamine Succinate [Unisom] 25 mg PO BEDTIME PRN 08/20/21 [History] Vits #93/Iron Fum/FA [ Formula Tablet] 1 tab PO DAILY 08/20/21 [History] - CURRENT (IN HOUSE) MEDS Current Meds: Current Medications Acetaminophen (Acetaminophen 325 Mg Tab) 650 mg PO Q6H PRN PRN Reason: Pain (Mild 1-3) and fever Diphenhydramine HCl (Diphenhydramine 50 Mg/Ml Sdv) 25 mg IVPUSH Q6H PRN PRN Reason: pruritis Ephedrine Sulfate (Ephedrine 50 Mg/Ml Sdv) 5 mg IVPUSH ASDIRECTED PRN PRN Reason: Hypotension Fentanyl (Fentanyl 100 Mcg/2 Ml Sdv) 100 mcg EPIDUR Q3H PRN PRN Reason: Pain Fentanyl/Bupivacaine HCl (Bupivacaine/Fentanyl/Ns 100 Ml Bag) 100 ml EPIDUR ASDIRECTED PRN PRN Reason: Pain Lactated Ringer's (Ringers, Lactated) 1,000 mls @ 100 mls/hr IV ASDIRECTED FAUSTINO Last Admin: 08/31/21 02:00 Dose: 999 mls/hr Documented by: Oxytocin/Lactated Ringer's (Pitocin In Lr 10 Units/1,000 Ml) 10 unit in 1,000 mls @ 100 mls/hr IV .CONTINUOUS FAUSTINO Morphine Sulfate (Morphine 2 Mg/Ml Syringe) 2 mg IVPUSH Q2H PRN PRN Reason: Pain (severe 7-10) Last Admin: 08/31/21 02:05 Dose: 2 mg Documented by: Nalbuphine HCl (Nalbuphine 10 Mg/1 Ml Vial) 10 mg IVPUSH Q2H PRN PRN Reason: Pain Sodium Chloride (Sodium Chloride 0.9% 10 Ml Syringe) 10 ml FLUSH ASDIRECTED PRN PRN Reason: Keep Vein Open Discontinued Medications Lactated Ringer's (Ringers, Lactated) Confirm Administered Dose 1,000 mls @ as directed .ROUTE .STK-MED ONE Stop: 08/31/21 01:52 Morphine Sulfate (Morphine 2 Mg/Ml Syringe) Confirm Administered Dose 2 mg .ROUTE .STK-MED ONE Stop: 08/31/21 01:52
[2021-08-31 03:40] VITALS: BP 143/84; PULSE 76
[2021-08-31] MEDS: Bupivacaine/fentaNYL/NS 100 ML Bag EPIDUR PRN ×2 (03:48→09:44)
[2021-08-31] MEDS ORDERED: Promethazine 12.5 MG in Sodium Chloride 0.9% 50 ML IV ONE ×2 (04:32→15:25)
--- NOTE | 2021-08-31 04:50 | PCM.PNLD ---
Labor Progress Note - VS & Meds Vital Signs: Last Vital Signs Temp 37.1 C 08/31/21 01:54 Pulse 76 08/31/21 01:54 Resp 20 08/31/21 01:54 BP 143/84 H 08/31/21 01:54 Pulse Ox 100 08/31/21 01:54 Active Medications: Current Medications Acetaminophen (Acetaminophen 325 Mg Tab) 650 mg PO Q6H PRN PRN Reason: Pain (Mild 1-3) and fever Diphenhydramine HCl (Diphenhydramine 50 Mg/Ml Sdv) 25 mg IVPUSH Q6H PRN PRN Reason: pruritis Ephedrine Sulfate (Ephedrine 50 Mg/Ml Sdv) 5 mg IVPUSH ASDIRECTED PRN PRN Reason: Hypotension Fentanyl (Fentanyl 100 Mcg/2 Ml Sdv) 100 mcg EPIDUR Q3H PRN PRN Reason: Pain Last Admin: 08/31/21 03:47 Dose: 100 mcg Documented by: Fentanyl/Bupivacaine HCl (Bupivacaine/Fentanyl/Ns 100 Ml Bag) 100 ml EPIDUR ASDIRECTED PRN PRN Reason: Pain Last Admin: 08/31/21 03:48 Dose: 100 ml Documented by: Lactated Ringer's (Ringers, Lactated) 1,000 mls @ 100 mls/hr IV ASDIRECTED FAUSTINO Last Admin: 08/31/21 03:52 Dose: 999 mls/hr Documented by: Oxytocin/Lactated Ringer's (Pitocin In Lr 10 Units/1,000 Ml) 10 unit in 1,000 mls @ 100 mls/hr IV .CONTINUOUS FAUSTINO Promethazine HCl 12.5 mg/ (Sodium Chloride) 50.5 mls @ 100 mls/hr IV ONETIME ONE Stop: 08/31/21 05:02 Morphine Sulfate (Morphine 2 Mg/Ml Syringe) 2 mg IVPUSH Q2H PRN PRN Reason: Pain (severe 7-10) Last Admin: 08/31/21 02:05 Dose: 2 mg Documented by: Nalbuphine HCl (Nalbuphine 10 Mg/1 Ml Vial) 10 mg IVPUSH Q2H PRN PRN Reason: Pain Sodium Chloride (Sodium Chloride 0.9% 10 Ml Syringe) 10 ml FLUSH ASDIRECTED PRN PRN Reason: Keep Vein Open Discontinued Medications Lactated Ringer's (Ringers, Lactated) Confirm Administered Dose 1,000 mls @ as directed .ROUTE .STK-MED ONE Stop: 08/31/21 01:52 Morphine Sulfate (Morphine 2 Mg/Ml Syringe) Confirm Administered Dose 2 mg .ROUTE .STK-MED ONE Stop: 08/31/21 01:52 - Uterine Contractions Uterine Monitoring Mode: External [place] Contraction Frequency (min): 2-5 Contraction Duration (sec): 60-75 Contraction Intensity: Strong - Monitoring Monitor Mode: None - Vaginal Exam Dilation (cm): 4 Effacement (Percent): 90 Station: 1 Cervical Position: Anterior Sterile Vaginal Exam Performed By: Reginaldo Mccall Vaginal Exam Comment: Artificial rupture of membranes with return of moderate amount of bloody meconium stained fluid. Mother tolerated procedure without difficulty. - Labor Progress (Free Text) Labor Progress: Isa Mcmanus is a 21-year-old at 38 weeks 4 days with demise undergoing labor with augmentation, complicated by recent COVID-19 infection with first diagnosis on 08/24/2021 and treated at that time, chlamydia infection in early , excessive weight gain in , tobacco use in early and vaping throughout , marijuana use in , history of migraines and history of anxiety and depression not on medications Monitor contraction pattern and if she does not have regular contractions over the next hour then Pitocin should be started to augment labor Routine vitals Epidural in place for anesthesia Discontinue morphine due to concern of interaction with epidural in place Continue small amounts of regular diet Anticipate vaginal delivery Reginaldo Mccall MD 4:52 AM 08/31/2021
--- NOTE | 2021-08-31 13:16 | PCM.DEL ---
L & D Note - General Info Date of Service: 08/31/21 Mother's Due Date: 09/10/21 - Delivery Note Labor: Spontaneous, Augmented by ARM Delivery Outcome: Stillbirth Delivery Method: Spontaneous Vaginal Delivery-Single Presentation: Left Occiput Anterior (SALINA) Nuchal Cord: None Anesthesia Type: Epidural Amniotic Fluid Description: Meconium Stained (with blood tinged fluid) Laceration: 1st Degree (bilateral medial labia minore, repaired with 4-0 Vicryl), 2nd Degree (midline perineal, repaired with 3-0 Vicryl) Suture type: Vicryl Suture size: 3-0 Placenta: Intact, Spontaneous Cord: 3 Vessels Estimated Blood Loss: 200 Resuscitation Needed: No Score 1 min: 0 Score 5 min: 0 Second Stage Interventions: Reports: Pushing Effectively, Pushing, Stirrups/Leg Supports Delivery Comments (Free Text/Narrative):: Stage I: Isa Mcmanus was admitted for contractions that were getting more painful and closer together. On admission her cervix was dilated to 3 cm. She was GBS negative. On initial evaluation the nurses were unable to hear heart tones. Bedside ultrasound was performed that confirmed stillbirth with no cardiac motion noted, no circulation present and no movement present. Blood work was obtained at this time for evaluation of cause of stillbirth. Patient was given an epidural for anesthesia. She had artificial rupture of membranes with return of a small amount of blood-tinged light meconium stained fluid. She progressed to complete and pushing. Stage II: On 08/31/2021 she had a normal vaginal delivery of a stillborn male at 12:01. Apgars of 0 & 0. Weight of 3354 g (7 lbs 6.3 oz). There was no nuchal cord. Infant was delivered in SALINA position. The cord was doubly clamped and cut by myself immediately after delivery. Infant was floppy and had no muscl e tone on delivery. Infant was taken to the warmer per maternal request. Stage III: She had a spontaneous delivery of an intact placenta in [place] presentation. Three vessel cord. She was given pitocin and fundal massage. She had bilateral first-degree medial labia minora lacerations that were repaired with 4-0 Vicryl. She had a small second-degree midline perineal laceration that was repaired with 3-0 Vicryl. Mom was stable to recovery. EBL of 200 mL. The infant was then evaluated by physical exam and there were no significant abnormalities noted on the exam. The skin on the extremities including lower arms bilaterally and legs bilaterally as well as on the scrotum was sloughing off of the baby. The placenta was examined and there was a marginal insertion of the cord with possible accessory lobe that was somewhat from the main portion of placenta. The placenta tissue was grossly normal in appearance with some minor calcifications but somewhat firm on exam. Reginaldo Mccall MD 1:34 PM 08/31/2021 - General Info Date of Service: 08/31/21 - Patient Data Vitals - Most Recent: Last Vital Signs Temp 37.1 C 08/31/21 01:54 Pulse 76 08/31/21 01:54 Resp 20 08/31/21 01:54 BP 143/84 H 08/31/21 01:54 Pulse Ox 100 08/31/21 01:54 Weight - Most Recent: 94.801 kg I&O - Last 24 Hours: Intake & Output 08/30/21 08/31/21 08/31/21 22:59 06:59 14:59 Intake Total 2000 Output Total 525 Balance 1475 Lab Results Last 24 Hours: Laboratory Results - last 24 hr 08/31/21 08/31/21 08/31/21 Range/Units 02:22 02:22 02:22 WBC 11.49 H (3.98-10.04) K/mm3 RBC 3.99 (3.98-5.22) M/mm3 Hgb 12.4 (11.2-15.7) gm/dl Hct 37.1 (34.1-44.9) % MCV 93.0 (79.4-94.8) fl MCH 31.1 (25.6-32.2) pg MCHC 33.4 (32.2-35.5) g/dl RDW Std Deviation 47.0 H (36.4-46.3) fL Plt Count 301 (182-369) K/mm3 MPV 10.3 (9.4-12.3) fl Neut % (Auto) 80.1 H (34.0-71.1) % Lymph % (Auto) 13.1 L (19.3-51.7) % [place] % (Auto) 5.8 (4.7-12.5) % Eos % (Auto) 0.4 L (0.7-5.8) Baso % (Auto) 0.3 (0.1-1.2) % Neut # (Auto) 9.21 H (1.56-6.13) K/mm3 Lymph # (Auto) 1.50 (1.18-3.74) K/mm3 [place] # (Auto) 0.67 H (0.24-0.36) K/mm3 Eos # (Auto) 0.05 (0.04-0.36) K/mm3 Baso # (Auto) 0.03 (0.01-0.08) K/mm3 Sodium 140 (136-145) mEq/L Potassium 3.8 (3.5-5.1) mEq/L Chloride 105 (98-107) mEq/L Carbon Dioxide 24 (21-32) mEq/L Anion Gap 14.8 (5-15) BUN 11 (7-18) mg/dL Creatinine 1.1 H (0.55-1.02) mg/dL Est Cr Clr Drug Dosing 84.55 mL/min Estimated GFR (MDRD) > 60 (>60) mL/min BUN/Creatinine Ratio 10.0 L (14-18) Glucose 93 (70-99) mg/dL Hemoglobin A1c 5.3 ( - 5.6) % Calcium 8.0 L (8.5-10.1) mg/dL Total Bilirubin 0.3 (0.2-1.0) mg/dL AST 34 (15-37) U/L ALT 33 (14-59) U/L Alkaline Phosphatase 280 H (46-116) U/L Lactate Dehydrogenase 426 H (81-234) U/L Total Protein 6.4 (6.4-8.2) g/dl Albumin 2.6 L (3.4-5.0) g/dl Globulin 3.8 gm/dL Albumin/Globulin Ratio 0.7 L (1-2) Free T4 1.07 (0.76-1.46) ng/dL TSH 3rd Generation 3.777 H (0.358-3.74) uIU/mL Ur Random Creatinine (30.0-125.0) mg/dL U Random Total Protein (0.0-11.8) mg/dL Protein/Creatinin Ratio Urine Opiates Screen (QVBZJK=118) Ur Buprenorphine Scrn (CUTOFF=10) Ur Oxycodone Screen (ABC6VK=335) Urine Methadone Screen (AVWJHC=318) Ur Propoxyphene Screen (UVAUNJ=459) Ur Barbiturates Screen (RYZFHP=625) Ur Tricyclics Screen (GOIYUT=441) Ur Phencyclidine Scrn (CUTOFF=25) Ur Amphetamine Screen (WVKCYE=983) U Methamphetamines Scrn (ULMBJU=887) U Benzodiazepines Scrn (FZGONO=230) U Cocaine Metab Screen (AXBZRV=716) U Marijuana (THC) Screen (CUTOFF=50) Blood Type Gel Antibody Screen 08/31/21 08/31/21 08/31/21 Range/Units 02:22 02:30 02:30 WBC (3.98-10.04) K/mm3 RBC (3.98-5.22) M/mm3 Hgb (11.2-15.7) gm/dl Hct (34.1-44.9) % MCV (79.4-94.8) fl MCH (25.6-32.2) pg MCHC (32.2-35.5) g/dl RDW Std Deviation (36.4-46.3) fL Plt Count (182-369) K/mm3 MPV (9.4-12.3) fl Neut % (Auto) (34.0-71.1) % Lymph % (Auto) (19.3-51.7) % [place] % (Auto) (4.7-12.5) % Eos % (Auto) (0.7-5.8) Baso % (Auto) (0.1-1.2) % Neut # (Auto) (1.56-6.13) K/mm3 Lymph # (Auto) (1.18-3.74) K/mm3 [place] # (Auto) (0.24-0.36) K/mm3 Eos # (Auto) (0.04-0.36) K/mm3 Baso # (Auto) (0.01-0.08) K/mm3 Sodium (136-145) mEq/L Potassium (3.5-5.1) mEq/L Chloride (98-107) mEq/L Carbon Dioxide (21-32) mEq/L Anion Gap (5-15) BUN (7-18) mg/dL Creatinine (0.55-1.02) mg/dL Est Cr Clr Drug Dosing mL/min Estimated GFR (MDRD) (>60) mL/min BUN/Creatinine Ratio (14-18) Glucose (70-99) mg/dL Hemoglobin A1c ( - 5.6) % Calcium (8.5-10.1) mg/dL Total Bilirubin (0.2-1.0) mg/dL AST (15-37) U/L ALT (14-59) U/L Alkaline Phosphatase (46-116) U/L Lactate Dehydrogenase (81-234) U/L Total Protein (6.4-8.2) g/dl Albumin (3.4-5.0) g/dl Globulin gm/dL Albumin/Globulin Ratio (1-2) Free T4 (0.76-1.46) ng/dL TSH 3rd Generation (0.358-3.74) uIU/mL Ur Random Creatinine 25.2 L (30.0-125.0) mg/dL U Random Total Protein < 6.0 (0.0-11.8) mg/dL Protein/Creatinin Ratio TNP Urine Opiates Screen Presumptive positive H (WZQBDP=693) Ur Buprenorphine Scrn Negative (CUTOFF=10) Ur Oxycodone Screen Negative (ORO9GH=163) Urine Methadone Screen Negative (KCRYNW=611) Ur Propoxyphene Screen Negative (JJYLMM=215) Ur Barbiturates Screen Negative (YQARTF=760) Ur Tricyclics Screen Negative (OVYZRT=566) Ur Phencyclidine Scrn Negative (CUTOFF=25) Ur Amphetamine Screen Negative (QWRPIV=218) U Methamphetamines Scrn Negative (MAJBVW=172) U Benzodiazepines Scrn Negative (WHADBG=072) U Cocaine Metab Screen Negative (ZBKYJO=219) U Marijuana (THC) Screen Presumptive positive H (CUTOFF=50) Blood Type O POSITIVE Gel Antibody Screen Negative Med Orders - Current: Current Medications Acetaminophen (Acetaminophen 325 Mg Tab) 650 mg PO Q6H PRN PRN Reason: Pain (Mild 1-3) and fever Last Admin: 08/31/21 11:39 Dose: 650 mg Documented by: Diphenhydramine HCl (Diphenhydramine 50 Mg/Ml Sdv) 25 mg IVPUSH Q6H PRN PRN Reason: pruritis Ephedrine Sulfate (Ephedrine 50 Mg/Ml Sdv) 5 mg IVPUSH ASDIRECTED PRN PRN Reason: Hypotension Fentanyl (Fentanyl 100 Mcg/2 Ml Sdv) 100 mcg EPIDUR Q3H PRN PRN Reason: Pain Last Admin: 08/31/21 03:47 Dose: 100 mcg Documented by: Fentanyl/Bupivacaine HCl (Bupivacaine/Fentanyl/Ns 100 Ml Bag) 100 ml EPIDUR ASDIRECTED PRN PRN Reason: Pain Last Admin: 08/31/21 09:44 Dose: 100 ml Documented by: Lactated Ringer's (Ringers, Lactated) 1,000 mls @ 100 mls/hr IV ASDIRECTED FAUSTINO Last Admin: 08/31/21 06:00 Dose: 100 mls/hr Documented by: Oxytocin/Lactated Ringer's (Pitocin In Lr 10 Units/1,000 Ml) 10 unit in 1,000 mls @ 100 mls/hr IV .CONTINUOUS FAUSTINO Nalbuphine HCl (Nalbuphine 10 Mg/1 Ml Vial) 10 mg IVPUSH Q2H PRN PRN Reason: Pain Sodium Chloride (Sodium Chloride 0.9% 10 Ml Syringe) 10 ml FLUSH ASDIRECTED PRN PRN Reason: Keep Vein Open Discontinued Medications Lactated Ringer's (Ringers, Lactated) Confirm Administered Dose 1,000 mls @ as directed .ROUTE .STK-MED ONE Stop: 08/31/21 01:52 Last Admin: 08/31/21 05:23 Dose: Not Given Documented by: Promethazine HCl 12.5 mg/ (Sodium Chloride) 50.5 mls @ 100 mls/hr IV ONETIME ONE Stop: 08/31/21 05:02 Last Admin: 08/31/21 04:40 Dose: 100 mls/hr Documented by: Morphine Sulfate (Morphine 2 Mg/Ml Syringe) Confirm Administered Dose 2 mg .ROUTE .STK-MED ONE Stop: 08/31/21 01:52 Last Admin: 08/31/21 05:23 Dose: Not Given Documented by: Morphine Sulfate (Morphine 2 Mg/Ml Syringe) 2 mg IVPUSH Q2H PRN PRN Reason: Pain (severe 7-10) Last Admin: 08/31/21 02:05 Dose: 2 mg Documented by: - Exam Urinary Catheter Total Time: 0Days 0Hours - Problem List & Annotations (1) 38 weeks gestation of SNOMED Code(s): 07044823 Code(s): Z3A.38 - 38 WEEKS GESTATION OF Status: Acute Current Visit: Yes (2) demise, greater than 22 weeks, antepartum SNOMED Code(s): 909436603, 565766382 Code(s): O36.4XX0 - MATERNAL CARE FOR INTRAUTERINE , NOT APPLICABLE OR UNSP Status: Acute Current Visit: Yes (3) COVID-19 affecting in third trimester SNOMED Code(s): 035826249, 211592373 Code(s): O98.513 - OTHER VIRAL DISEASES COMPLICATING , THIRD TRIMESTER; U07.1 - COVID-19 Status: Acute Current Visit: Yes (4) Chlamydia infection affecting in first trimester SNOMED Code(s): 17298321, 838451823 Code(s): O98.811 - OTH MATERNAL INFEC/PARASTC DISEASES COMP PREG, FIRST TRI; A74.9 - CHLAMYDIAL INFECTION, UNSPECIFIED Status: Acute Current Visit: Yes (5) Vaginal delivery SNOMED Code(s): 672080820 Code(s): O80 - ENCOUNTER FOR FULL-TERM UNCOMPLICATED DELIVERY Status: Acute Current Visit: Yes (6) Second degree perineal laceration during delivery SNOMED Code(s): 9150379 Code(s): O70.1 - SECOND DEGREE PERINEAL LACERATION DURING DELIVERY Status: Acute Current Visit: Yes - Problem List Review Problem List Initiated/Reviewed/Updated: Yes - My Orders Last 24 Hours: My Active Orders 08/30/21 23:32 Resuscitation Status Routine 08/31/21 01:54 Acetaminophen [TylenoL] 650 mg PO Q6H PRN Lactated Ringers [Ringers, Lactated] 1,000 ml IV ASDIRECTED Nalbuphine [Nubain] 10 mg IVPUSH Q2H PRN Oxytocin/Lactated Ringers [Pitocin in LR 10 Units/1,000 ML] 10 unit in 1,000 ml IV .CONTINUOUS Sodium Chloride 0.9% [Saline Flush] 10 ml FLUSH ASDIRECTED PRN 08/31/21 01:54 Patient Status [ADT] Routine Activity as Tolerated [RC] PFP Communication Order [RC] ASDIRECTED Notify Provider Vital Signs [RC] PRN Notify Provider [RC] PFP Notify Provider [RC] PRN Peripheral IV Care [RC] Q4HR Pump Management, Intrathecal [RC] ASDIRECTED Vital Signs [RC] ASDIRECTED Peripheral IV Insertion Adult [OM.PC] Routine 08/31/21 02:22 ANTICARDIOLIPIN AB, IGG/M, QN [REF] Routine BETA-2 GLYCOPROTEIN I AB,G/M [REF] Routine BILE ACIDS, FRACTIONATED LCMS [REF] Routine LUPUS ANTICOAGULANT PANEL [REF] Routine RAPID PLASMA REAGIN,RPR [CHEM] Routine 08/31/21 13:09 Patient Status Manage Transfer [TRANSFER] Routine - Plan Plan:: Isa Mcmanus is a 21-year-old now -0-0-0 status post spontaneous vaginal delivery of a stillborn infant, PPD #0 with complicated by recent COVID-19 infection with first diagnosis on 08/24/2021 and treated at that time, chlamydia infection in early , excessive weight gain in , tobacco use in early and vaping throughout , marijuana use in , history of migraines and history of anxiety and depression not on medications * Admit to inpatient following spontaneous vaginal delivery of a stillborn * Continue Pitocin per unit protocol following delivery of placenta and lactated Ringer's until tolerating regular diet * Regular diet * Vitals per unit routine * Ibuprofen and Tylenol for pain control * Patient was counseled on additional testing including autopsy of the infant and genetic testing that can be performed. Parents declined any additional testing. We will obtain a COVID-19 swab of the to see if it had vertical transmission of COVID-19 infection during the . * Placenta to be sent for pathology due to stillborn infant * Continue to monitor lochia * Anticipate discharge home in the afternoon of PPD #0 or later if patient is unstable or desires to be monitored for long Reginaldo Mccall MD 1:34 PM 08/31/2021
[2021-08-31] MEDS ORDERED: Witch Hazel Medicated Pads 40/Jar TOP PRN (15:22)
[2021-08-31] MEDS ORDERED: Ibuprofen 600 MG Tab PO PRN (15:22)
[2021-08-31] MEDS ORDERED: Benzocaine/Menthol 20%-0.5% Spray 78 GM Cannister TOP PRN (15:22)
[2021-08-31] MEDS ORDERED: Hydrocortisone Acetate 25 MG Supp RECTAL PRN (15:22)
--- NOTE | 2021-08-31 22:28 | PCM.SN.2 ---
- Free Text/Narrative Note: Post Progress Note PPD #0 Subjective: Doing well overall. Ambulating without difficulty. Lochia minimal. Voiding without difficulty. Tolerating regular diet with minimal nausea or vomiting at this time. Reports that she had one episode of vomiting after delivery of the infant. Pain controlled with oral medications. Not having any milk production at this time. Objective: Vitals: Vital Signs - 24 hr 08/31/21 08/31/21 01:54 19:03 Temperature 37.6 C Temperature [ 37.1 C Temporal] Pulse, 76 Peripheral [ Pulse Oximetry] Respiratory 20 Rate Blood Pressure 143/84 H [Right Upper Arm] O2 Sat by Pulse 100 Oximetry Physical Exam General: Alert and oriented, mild distress with tearful affect Lungs: Left upper lobe with mild wheezing. No wheezing in the lower lobes noted. Right lung clear to auscultation. Heart: Regular rate and rhythm Abdomen: Soft, minimal appropriate tenderness, non-distended, fundus midline, nontender, and 2 fingerbreadths below the umbilicus Extremities: No edema in bilateral lower extremities, no calf tenderness bilaterally ASSESSMENT: Isa Mcmanus is a 21-year-old now -0-0-0 status post spontaneous vaginal delivery of a stillborn , PPD #0 with complicated by gestational hypertension in labor, recent COVID-19 infection with first diagnosis on 08/24/2021 and treated at that time, chlamydia infection in early , excessive weight gain in , tobacco use in early and vaping throughout , marijuana use in , history of migraines and history of anxiety and depression not on medications PLAN: Doing well Patient tearful at times with coping over stillborn infant. Patient did have time to spend with the . Lochia minimal. Continue to monitor for appropriate lochia. Continue routine care Discharge home this evening Reginaldo Mccall MD 10:28 PM 08/31/2021 Time Documentation
--- NOTE | 2021-08-31 22:33 | PCM.DCSUM1 ---
Discharge Summary - Hospital Course Free Text/Narrative:: - General Info Date of Service: 08/31/21 Mother's Due Date: 09/10/21 - Delivery Note Labor: Spontaneous, Augmented by ARM Delivery Outcome: Stillbirth Infant Delivery Method: Spontaneous Vaginal Delivery-Single Presentation: Left Occiput Anterior (SALINA) Nuchal Cord: None Anesthesia Type: Epidural Amniotic Fluid Description: Meconium Stained (with blood tinged fluid) Laceration: 1st Degree (bilateral medial labia minore, repaired with 4-0 Vicryl), 2nd Degree (midline perineal, repaired with 3-0 Vicryl) Suture type: Vicryl Suture size: 3-0 Placenta: Intact, Spontaneous Cord: 3 Vessels Estimated Blood Loss: 200 Resuscitation Needed: No Score 1 min: 0 Score 5 min: 0 Second Stage Interventions: Reports: Pushing Effectively, Pushing, Stirrups/Leg Supports Delivery Comments (Free Text/Narrative):: Stage I: Isa Mcmanus was admitted for contractions that were getting more painful and closer together. On admission her cervix was dilated to 3 cm. She was GBS negative. On initial evaluation the nurses were unable to hear heart tones. Bedside ultrasound was performed that confirmed stillbirth with no cardiac motion noted, no circulation present and no movement present. Blood work was obtained at this time for evaluation of cause of stillbirth. Patient was given an epidural for anesthesia. She had artificial rupture of membranes with return of a small amount of blood-tinged light meconium stained fluid. She progressed to complete and pushing. Stage II: On 08/31/2021 she had a normal vaginal delivery of a stillborn male at 12:01. Apgars of 0 & 0. Weight of 3354 g (7 lbs 6.3 oz). There was no nuchal cord. Infant was delivered in SALINA position. The cord was doubly clamped and cut by myself immediately after delivery. Infant was floppy and had no muscle tone on delivery. was taken to the warmer per maternal request. Stage III: She had a spontaneous delivery of an intact placenta in Giles presentation. Three vessel cord. She was given pitocin and fundal massage. She had bilateral first-degree medial labia minora lacerations that were repaired with 4-0 Vicryl. She had a small second-degree midline perineal laceration that was repaired with 3-0 Vicryl. Mom was stable to recovery. EBL of 200 mL. The infant was then evaluated by physical exam and there were no significant abnormalities noted on the exam. The skin on the extremities including lower arms bilaterally and legs bilaterally as well as on the scrotum was sloughing off of the baby. The placenta was examined and there was a marginal insertion of the cord with possible accessory lobe that was somewhat from the main portion of placenta. The placenta tissue was grossly normal in appearance with some minor calcifications but somewhat firm on exam. Diagnosis: Stroke: No - Discharge Data Discharge Date: 08/31/21 Discharge Disposition: Home, Self-Care 01 Condition: Good - Referral to Home Health Primary Care Physician: Jacey Chavis MD - Discharge Diagnosis/Problem(s) (1) 38 weeks gestation of SNOMED Code(s): 82334442 ICD Code: Z3A.38 - 38 WEEKS GESTATION OF Status: Acute Current Visit: Yes (2) demise, greater than 22 weeks, antepartum SNOMED Code(s): 537940582, 624064796 ICD Code: O36.4XX0 - MATERNAL CARE FOR INTRAUTERINE , NOT APPLICABLE OR UNSP Status: Acute Current Visit: Yes (3) COVID-19 affecting in third trimester SNOMED Code(s): 390326755, 913324382 ICD Code: O98.513 - OTHER VIRAL DISEASES COMPLICATING , THIRD TRIMESTER; U07.1 - COVID-19 Status: Acute Current Visit: Yes (4) Chlamydia infection affecting in first trimester SNOMED Code(s): 17831788, 042764741 ICD Code: O98.811 - OTH MATERNAL INFEC/PARASTC DISEASES COMP PREG, FIRST TRI; A74.9 - CHLAMYDIAL INFECTION, UNSPECIFIED Status: Acute Current Visit: Yes (5) Vaginal delivery SNOMED Code(s): 030350153 ICD Code: O80 - ENCOUNTER FOR FULL-TERM UNCOMPLICATED DELIVERY Status: Acute Current Visit: Yes (6) Second degree perineal laceration during delivery SNOMED Code(s): 1638880 ICD Code: O70.1 - SECOND DEGREE PERINEAL LACERATION DURING DELIVERY Status: Acute Current Visit: Yes - Patient Summary/Data Complications: Stillborn infant Consults: None Hospital Course: Isa Mcmanus was admitted for contractions that were getting more painful and closer together. On admission her cervix was dilated to 3 cm. On initial evaluation by the nurses they were unable to hear heart tones. A bedside ultrasound was performed that confirmed needle demise with no cardiac motion noted, no circulation present and no movement present. Lab work was obtained at this time for evaluation of cause of the demise. Patient was given an epidural for anesthesia. She had artificial rupture membranes with return of small amount of blood-tinged and meconium stained fluid. She progressed to complete and began pushing. On 08/31/2021 she had a normal vaginal delivery of a stillborn male infant at 12:01. Apgars of 0 and 0. Weight of 3354 g (7 pounds 6.3 ounces). The was evaluated by physical exam with no significant abnormalities noted. There was sloughing of the skin on the 4 extremities as well as on the scrotum. The placenta was examined and there was a marginal insertion of the cord with possible accessory lobe that was somewhat from main portion of the placenta. Placenta tissue was grossly normal in appearance with some minor calcifications and firm on exam. Her course was otherwise uneventful. Her pain was well controlled and she had minimal lochia. She was ambulating, tolerating small amounts of regular diet and voiding normally. She was not having any milk production at this time. She was afebrile and her hematocrit was 37.1 on initial labs. She desired to be discharged home in the evening of PPD #0 approximately 10 hours after delivery. Her blood type is O+. - Patient Instructions Diet: Regular Diet as Tolerated Activity: Apply Ice, As Tolerated Activity, Other: Nothing in the vagina for 6 weeks Driving: May Drive Today Showering/Bathing: May Shower Notify Provider of: Fever, Increased Pain, Swelling and Redness, Drainage, Nausea and/or Vomiting Other/Special Instructions: Please contact your physician's office if you have heavy vaginal bleeding enough to soak a pad in less than an hour for several hours. Monitor for any signs of an infection in the breasts with severe pain or redness of the breast. Use a tight fitting sports bra or Dustin bandage wrap around the chest to reduce milk production. Avoid nipple stimulation to reduce the amount of milk production. Use cold compress if you are having some pain in the breasts with engorgement of milk glands. - Discharge Plan *PRESCRIPTION DRUG MONITORING PROGRAM REVIEWED*: Not Applicable *COPY OF PRESCRIPTION DRUG MONITORING REPORT IN PATIENT DAVID: Not Applicable Home Medications: Home Meds Doxylamine Succinate [Unisom] 25 mg PO BEDTIME PRN 08/20/21 [History] Vits #93/Iron Fum/FA [ Formula Tablet] 1 tab PO DAILY 08/20/21 [History] Acetaminophen [Tylenol] 650 mg PO Q6H PRN tablet 08/31/21 [Rx] Benzocaine/Menthol [Dermoplast Pain Relief 20%-0.5% Letart] 1 spray TOP ASDIRE CTED PRN canister 08/31/21 [Rx] Hydrocortisone Acetate [Anucort-HC] 25 mg RECTAL BID PRN supp 08/31/21 [Rx] Ibuprofen [Motrin] 600 mg PO Q6H PRN tablet 08/31/21 [Rx] witch Dior [Tucks] 1 pad TOP ASDIRECTED PRN pad 08/31/21 [Rx] Patient Handouts: Care of a Perineal Tear, Vaginal Delivery, Loss, Care After Referrals: Jacey Chavis MD [Primary Care Provider] - (Follow-up on 09/03 or earlier as needed for routine visit.) - Discharge Summary/Plan Comment DC Time >30 min.: No Total # of Minutes for Discharge Time: 15 minutes - Patient Data Vitals - Most Recent: Last Vital Signs Temp 37.6 C 08/31/21 19:03 Pulse 76 08/31/21 01:54 Resp 20 08/31/21 01:54 BP 143/84 H 08/31/21 01:54 Pulse Ox 100 08/31/21 01:54 Weight - Most Recent: 94.801 kg I&O - Last 24 hours: Intake & Output 08/31/21 08/31/21 08/31/21 06:59 14:59 22:59 Intake Total 2000 Output Total 525 1100 100 Balance 1475 -1100 -100 Lab Results - Last 24 hrs: Laboratory Results - last 24 hr 08/31/21 08/31/21 08/31/21 Range/Units 02:22 02:22 02:22 WBC 11.49 H (3.98-10.04) K/mm3 RBC 3.99 (3.98-5.22) M/mm3 Hgb 12.4 (11.2-15.7) gm/dl Hct 37.1 (34.1-44.9) % MCV 93.0 (79.4-94.8) fl MCH 31.1 (25.6-32.2) pg MCHC 33.4 (32.2-35.5) g/dl RDW Std Deviation 47.0 H (36.4-46.3) fL Plt Count 301 (182-369) K/mm3 MPV 10.3 (9.4-12.3) fl Neut % (Auto) 80.1 H (34.0-71.1) % Lymph % (Auto) 13.1 L (19.3-51.7) % Cannon % (Auto) 5.8 (4.7-12.5) % Eos % (Auto) 0.4 L (0.7-5.8) Baso % (Auto) 0.3 (0.1-1.2) % Neut # (Auto) 9.21 H (1.56-6.13) K/mm3 Lymph # (Auto) 1.50 (1.18-3.74) K/mm3 Cannon # (Auto) 0.67 H (0.24-0.36) K/mm3 Eos # (Auto) 0.05 (0.04-0.36) K/mm3 Baso # (Auto) 0.03 (0.01-0.08) K/mm3 Sodium 140 (136-145) mEq/L Potassium 3.8 (3.5-5.1) mEq/L Chloride 105 (98-107) mEq/L Carbon Dioxide 24 (21-32) mEq/L Anion Gap 14.8 (5-15) BUN 11 (7-18) mg/dL Creatinine 1.1 H (0.55-1.02) mg/dL Est Cr Clr Drug Dosing 84.55 mL/min Estimated GFR (MDRD) > 60 (>60) mL/min BUN/Creatinine Ratio 10.0 L (14-18) Glucose 93 (70-99) mg/dL Hemoglobin A1c 5.3 ( - 5.6) % Calcium 8.0 L (8.5-10.1) mg/dL Total Bilirubin 0.3 (0.2-1.0) mg/dL AST 34 (15-37) U/L ALT 33 (14-59) U/L Alkaline Phosphatase 280 H (46-116) U/L Lactate Dehydrogenase 426 H (81-234) U/L Total Protein 6.4 (6.4-8.2) g/dl Albumin 2.6 L (3.4-5.0) g/dl Globulin 3.8 gm/dL Albumin/Globulin Ratio 0.7 L (1-2) Free T4 1.07 (0.76-1.46) ng/dL TSH 3rd Generation 3.777 H (0.358-3.74) uIU/mL Ur Random Creatinine (30.0-125.0) mg/dL U Random Total Protein (0.0-11.8) mg/dL Protein/Creatinin Ratio Urine Opiates Screen (QDJLYF=702) Ur Buprenorphine Scrn (CUTOFF=10) Ur Oxycodone Screen (OBU5ZU=574) Urine Methadone Screen (FJVMSQ=374) Ur Propoxyphene Screen (HAAOEZ=090) Ur Barbiturates Screen (SNLUWB=788) Ur Tricyclics Screen (MHYBCB=660) Ur Phencyclidine Scrn (CUTOFF=25) Ur Amphetamine Screen (YDFXMB=225) U Methamphetamines Scrn (TCBDYM=146) U Benzodiazepines Scrn (IAPGKC=012) U Cocaine Metab Screen (SMLCVO=176) U Marijuana (THC) Screen (CUTOFF=50) RPR (NONREACTIVE) Blood Type Gel Antibody Screen 08/31/21 08/31/21 08/31/21 Range/Units 02:22 02:22 02:30 WBC (3.98-10.04) K/mm3 RBC (3.98-5.22) M/mm3 Hgb (11.2-15.7) gm/dl Hct (34.1-44.9) % MCV (79.4-94.8) fl MCH (25.6-32.2) pg MCHC (32.2-35.5) g/dl RDW Std Deviation (36.4-46.3) fL Plt Count (182-369) K/mm3 MPV (9.4-12.3) fl Neut % (Auto) (34.0-71.1) % Lymph % (Auto) (19.3-51.7) % Cannon % (Auto) (4.7-12.5) % Eos % (Auto) (0.7-5.8) Baso % (Auto) (0.1-1.2) % Neut # (Auto) (1.56-6.13) K/mm3 Lymph # (Auto) (1.18-3.74) K/mm3 Cannon # (Auto) (0.24-0.36) K/mm3 Eos # (Auto) (0.04-0.36) K/mm3 Baso # (Auto) (0.01-0.08) K/mm3 Sodium (136-145) mEq/L Potassium (3.5-5.1) mEq/L Chloride (98-107) mEq/L Carbon Dioxide (21-32) mEq/L Anion Gap (5-15) BUN (7-18) mg/dL Creatinine (0.55-1.02) mg/dL Est Cr Clr Drug Dosing mL/min Estimated GFR (MDRD) (>60) mL/min BUN/Creatinine Ratio (14-18) Glucose (70-99) mg/dL Hemoglobin A1c ( - 5.6) % Calcium (8.5-10.1) mg/dL Total Bilirubin (0.2-1.0) mg/dL AST (15-37) U/L ALT (14-59) U/L Alkaline Phosphatase (46-116) U/L Lactate Dehydrogenase (81-234) U/L Total Protein (6.4-8.2) g/dl Albumin (3.4-5.0) g/dl Globulin gm/dL Albumin/Globulin Ratio (1-2) Free T4 (0.76-1.46) ng/dL TSH 3rd Generation (0.358-3.74) uIU/mL Ur Random Creatinine 25.2 L (30.0-125.0) mg/dL U Random Total Protein < 6.0 (0.0-11.8) mg/dL Protein/Creatinin Ratio TNP Urine Opiates Screen (HLPRAC=354) Ur Buprenorphine Scrn (CUTOFF=10) Ur Oxycodone Screen (QXM2FC=429) Urine Methadone Screen (GWIPXC=408) Ur Propoxyphene Screen (LZUFBY=363) Ur Barbiturates Screen (EYLDOD=307) Ur Tricyclics Screen (GOQKXA=531) Ur Phencyclidine Scrn (CUTOFF=25) Ur Amphetamine Screen (PZJXIH=920) U Methamphetamines Scrn (ORDXLA=480) U Benzodiazepines Scrn (MSQXHU=232) U Cocaine Metab Screen (EYKVQD=191) U Marijuana (THC) Screen (CUTOFF=50) RPR Non-reactive (NONREACTIVE) Blood Type O POSITIVE Gel Antibody Screen Negative 08/31/21 Range/Units 02:30 WBC (3.98-10.04) K/mm3 RBC (3.98-5.22) M/mm3 Hgb (11.2-15.7) gm/dl Hct (34.1-44.9) % MCV (79.4-94.8) fl MCH (25.6-32.2) pg MCHC (32.2-35.5) g/dl RDW Std Deviation (36.4-46.3) fL Plt Count (182-369) K/mm3 MPV (9.4-12.3) fl Neut % (Auto) (34.0-71.1) % Lymph % (Auto) (19.3-51.7) % Cannon % (Auto) (4.7-12.5) % Eos % (Auto) (0.7-5.8) Baso % (Auto) (0.1-1.2) % Neut # (Auto) (1.56-6.13) K/mm3 Lymph # (Auto) (1.18-3.74) K/mm3 Cannon # (Auto) (0.24-0.36) K/mm3 Eos # (Auto) (0.04-0.36) K/mm3 Baso # (Auto) (0.01-0.08) K/mm3 Sodium (136-145) mEq/L Potassium (3.5-5.1) mEq/L Chloride (98-107) mEq/L Carbon Dioxide (21-32) mEq/L Anion Gap (5-15) BUN (7-18) mg/dL Creatinine (0.55-1.02) mg/dL Est Cr Clr Drug Dosing mL/min Estimated GFR (MDRD) (>60) mL/min BUN/Creatinine Ratio (14-18) Glucose (70-99) mg/dL Hemoglobin A1c ( - 5.6) % Calcium (8.5-10.1) mg/dL Total Bilirubin (0.2-1.0) mg/dL AST (15-37) U/L ALT (14-59) U/L Alkaline Phosphatase (46-116) U/L Lactate Dehydrogenase (81-234) U/L Total Protein (6.4-8.2) g/dl Albumin (3.4-5.0) g/dl Globulin gm/dL Albumin/Globulin Ratio (1-2) Free T4 (0.76-1.46) ng/dL TSH 3rd Generation (0.358-3.74) uIU/mL Ur Random Creatinine (30.0-125.0) mg/dL U Random Total Protein (0.0-11.8) mg/dL Protein/Creatinin Ratio Urine Opiates Screen Presumptive positive H (JRAVCA=774) Ur Buprenorphine Scrn Negative (CUTOFF=10) Ur Oxycodone Screen Negative (TON0ZY=073) Urine Methadone Screen Negative (UIFJBM=451) Ur Propoxyphene Screen Negative (NZFQZB=695) Ur Barbiturates Screen Negative (SCVGDS=952) Ur Tricyclics Screen Negative (PINYMB=565) Ur Phencyclidine Scrn Negative (CUTOFF=25) Ur Amphetamine Screen Negative (YRYFYT=775) U Methamphetamines Scrn Negative (TOIZEO=635) U Benzodiazepines Scrn Negative (MHAFRT=401) U Cocaine Metab Screen Negative (ESFLOU=209) U Marijuana (THC) Screen Presumptive positive H (CUTOFF=50) RPR (NONREACTIVE) Blood Type Gel Antibody Screen Med Orders - Current: Current Medications Acetaminophen (Acetaminophen 325 Mg Tab) 650 mg PO Q6H PRN PRN Reason: mild pain or fever Last Admin: 08/31/21 22:22 Dose: 650 mg Documented by: Benzocaine/Menthol (Benzocaine/Menthol 20%-0.5% Letart 78 Gm Cannister) 0 gm TOP ASDIRECTED PRN PRN Reason: Perineal Comfort Measure Last Admin: 08/31/21 16:02 Dose: 1 canister Documented by: Hydrocortisone Acetate (Hydrocortisone Acetate 25 Mg Supp) 25 mg RECTAL BID PRN PRN Reason: Hemorrhoid pain Oxytocin/Lactated Ringer's (Pitocin In Lr 10 Units/1,000 Ml) 10 unit in 1,000 mls @ 100 mls/hr IV TITRATE FAUSTINO; Protocol Last Admin: 08/31/21 12:07 Dose: 500 mls/hr, 500 mls/hr Documented by: Ibuprofen (Ibuprofen 600 Mg Tab) 600 mg PO Q6H PRN PRN Reason: Mild pain or fever Last Admin: 08/31/21 19:03 Dose: 600 mg Documented by: Danna Mendez (Danna Mendez Medicated Pads 40/Jar) 1 pad TOP ASDIRECTED PRN PRN Reason: Perineal Comfort Measure Last Admin: 08/31/21 16:01 Dose: 1 container Documented by: Discontinued Medications Acetaminophen (Acetaminophen 325 Mg Tab) 650 mg PO Q6H PRN PRN Reason: Pain (Mild 1-3) and fever Last Admin: 08/31/21 11:39 Dose: 650 mg Documented by: Diphenhydramine HCl (Diphenhydramine 50 Mg/Ml Sdv) 25 mg IVPUSH Q6H PRN PRN Reason: pruritis Ephedrine Sulfate (Ephedrine 50 Mg/Ml Sdv) 5 mg IVPUSH ASDIRECTED PRN PRN Reason: Hypotension Fentanyl (Fentanyl 100 Mcg/2 Ml Sdv) 100 mcg EPIDUR Q3H PRN PRN Reason: Pain Last Admin: 08/31/21 03:47 Dose: 100 mcg Documented by: Fentanyl/Bupivacaine HCl (Bupivacaine/Fentanyl/Ns 100 Ml Bag) 100 ml EPIDUR ASDIRECTED PRN PRN Reason: Pain Last Admin: 08/31/21 09:44 Dose: 100 ml Documented by: Lactated Ringer's (Ringers, Lactated) Confirm Administered Dose 1,000 mls @ as directed .ROUTE .STK-MED ONE Stop: 08/31/21 01:52 Last Admin: 08/31/21 05:23 Dose: Not Given Documented by: Lactated Ringer's (Ringers, Lactated) 1,000 mls @ 100 mls/hr IV ASDIRECTED FAUSTINO Last Admin: 08/31/21 06:00 Dose: 100 mls/hr Documented by: Oxytocin/Lactated Ringer's (Pitocin In Lr 10 Units/1,000 Ml) 10 unit in 1,000 mls @ 100 mls/hr IV .CONTINUOUS FAUSTINO Promethazine HCl 12.5 mg/ (Sodium Chloride) 50.5 mls @ 100 mls/hr IV ONETIME ONE Stop: 08/31/21 05:02 Last Admin: 08/31/21 04:40 Dose: 100 mls/hr Documented by: Promethazine HCl 12.5 mg/ (Sodium Chloride) 50.5 mls @ 100 mls/hr IV ONETIME ONE Stop: 08/31/21 15:55 Last Admin: 08/31/21 16:01 Dose: 100 mls/hr Documented by: Morphine Sulfate (Morphine 2 Mg/Ml Syringe) Confirm Administered Dose 2 mg .ROUTE .STK-MED ONE Stop: 08/31/21 01:52 Last Admin: 08/31/21 05:23 Dose: Not Given Documented by: Morphine Sulfate (Morphine 2 Mg/Ml Syringe) 2 mg IVPUSH Q2H PRN PRN Reason: Pain (severe 7-10) Last Admin: 08/31/21 02:05 Dose: 2 mg Documented by: Nalbuphine HCl (Nalbuphine 10 Mg/1 Ml Vial) 10 mg IVPUSH Q2H PRN PRN Reason: Pain Sodium Chloride (Sodium Chloride 0.9% 10 Ml Syringe) 10 ml FLUSH ASDIRECTED PRN PRN Reason: Keep Vein Open
== END 2021-08-31 22:40 | disposition home or self-care (01) | DRG 805 ==
LOC: JD.OBCHECK 23:25 → JD.OB 23:27 → JD.OBCHECK 08-31 01:40 → JD.OB 08-31 01:40 → OBSVTOIN 08-31 01:41
PROVIDERS: ADMIT Obstetrics & Gynecology; ATTEND Obstetrics & Gynecology
PROC: 10E0XZZ Delivery of Products of Conception, External Approach (ICD-10-PCS; principal; 2021-08-31)
PROC: 0KQM0ZZ Repair Perineum Muscle, Open Approach (ICD-10-PCS; 2021-08-31)
PROC: 10907ZC Drainage of Amniotic Fluid, Therapeutic from Products of Conception, Via Natural or Artificial Opening (ICD-10-PCS; 2021-08-31)
PROC: 3E0R3BZ Introduction of Anesthetic Agent into Spinal Canal, Percutaneous Approach (ICD-10-PCS; 2021-08-31)
PROC: 00HU33Z Insertion of Infusion Device into Spinal Canal, Percutaneous Approach (ICD-10-PCS; 2021-08-31)
DX: O36.4XX0 Maternal care for intrauterine death, not applicable or unspecified (principal); U07.1 COVID-19; Z37.1 Single stillbirth; O98.52 Other viral diseases complicating childbirth; O77.0 Labor and delivery complicated by meconium in amniotic fluid; O70.1 Second degree perineal laceration during delivery; O13.4 Gestational [pregnancy-induced] hypertension without significant proteinuria, complicating childbirth; Z3A.38 38 weeks gestation of pregnancy; Z87.891 Personal history of nicotine dependence
CPT/HCPCS: 01967; 36415; 51701; 51702; 59025; 59409; 80053; 80306; 82542; 82570; 83036; 83615; 84156; 84439; 84443; 85025; 85613; 85730; 86146; 86147; 86592; 86850; 86900; 86901; A9270-GY; J2270; J2550; J2590; J3010; J3490; J7120

== ENCOUNTER 2022-06-11 16:33 | Emergency (ER) | payer MEDICAID ==
[2022-06-11 17:08] VITALS: BP 129/55; PULSE 77
[2022-06-11] MEDS ORDERED: Sodium Chloride 0.9% 10 ML Syringe FLUSH PRN (17:10)
[2022-06-11 18:03] LABS: ESTIMATED GFR 125 mL/min (>60)
== END 2022-06-11 21:30 | disposition home or self-care (01) ==
LOC: JD.ED 16:33
DX: O99.891 Other specified diseases and conditions complicating pregnancy (principal); R10.2 Pelvic and perineal pain; Z3A.01 Less than 8 weeks gestation of pregnancy; F17.210 Nicotine dependence, cigarettes, uncomplicated; Z91.011 Allergy to milk products; Z88.8 Allergy status to other drugs, medicaments and biological substances; Z91.012 Allergy to eggs; Z79.899 Other long term (current) drug therapy; Z86.16 Personal history of COVID-19
CPT/HCPCS: 36415; 76705; 76705-26; 76817; 76817-26; 80053; 81001; 84702; 85025; 86140; 99284

== ENCOUNTER 2023-01-26 07:04 | Inpatient (IN) | payer MEDICAID ==
[2023-01-26] MEDS ORDERED: Ondansetron 4 MG/2 ML SDV IVPUSH PRN (07:27)
[2023-01-26] MEDS ORDERED: Nalbuphine 10 MG/0.5 ML Syringe IVPUSH PRN (07:27)
[2023-01-26] MEDS ORDERED: Sodium Chloride 0.9% 10 ML Syringe FLUSH PRN (07:27)
[2023-01-26] MEDS ORDERED: Lactated Ringers 1,000 ML IV SCH (07:30)
[2023-01-26] MEDS ORDERED: Oxytocin/Lactated Ringers 10 UNIT/1,000 ML BAG IV SCH ×2 (07:30)
[2023-01-26] MEDS ORDERED: Sodium Chloride 0.9% 10 ML Syringe FLUSH SCH (09:00)
[2023-01-26] MEDS ORDERED: Bupivacaine/fentaNYL/NS 100 ML Bag EPIDUR PRN (11:38)
[2023-01-26] MEDS ORDERED: fentaNYL 100 MCG/2 ML SDV EPIDUR PRN (11:38)
[2023-01-26] MEDS ORDERED: ePHEDrine 50 MG/ML SDV IVPUSH PRN (11:38)
[2023-01-26] MEDS ORDERED: diphenhydrAMINE 50 MG/ML SDV IVPUSH PRN (11:38)
[2023-01-26] MEDS ORDERED: Lidocaine 1% 50 ML MDV ONE (12:43)
[2023-01-26] MEDS ORDERED: Benzocaine/Menthol 20%-0.5% Spray 78 GM Cannister TOP PRN (14:07)
[2023-01-26] MEDS ORDERED: Acetaminophen 325 MG Tab PO PRN (14:07)
[2023-01-26] MEDS ORDERED: Docusate Sodium 100 MG Cap PO PRN (14:07)
[2023-01-26] MEDS: Witch Hazel Medicated Pads 40/Jar TOP PRN (17:07)
[2023-01-26] MEDS: Ibuprofen 600 MG Tab PO PRN (20:57)
[2023-01-27] MEDS: Ibuprofen 600 MG Tab PO PRN ×2 (02:36→10:06)
[2023-01-27] MEDS: Witch Hazel Medicated Pads 40/Jar TOP PRN (14:59)
[2023-01-27 15:55] VITALS: BP 133/78; PULSE 84
== END 2023-01-27 17:31 | disposition home or self-care (01) | DRG 807 ==
LOC: JD.OB 07:04 → OBSVTOIN 12:54 → JD.OB 12:54
PROVIDERS: ADMIT Obstetrics & Gynecology; ATTEND Obstetrics & Gynecology
PROC: 10E0XZZ Delivery of Products of Conception, External Approach (ICD-10-PCS; principal; 2023-01-26)
PROC: 10907ZC Drainage of Amniotic Fluid, Therapeutic from Products of Conception, Via Natural or Artificial Opening (ICD-10-PCS; 2023-01-26)
PROC: 0HQ9XZZ Repair Perineum Skin, External Approach (ICD-10-PCS; 2023-01-26)
DX: O99.344 Other mental disorders complicating childbirth (principal); Z3A.37 37 weeks gestation of pregnancy; Z37.0 Single live birth; O99.52 Diseases of the respiratory system complicating childbirth; O70.0 First degree perineal laceration during delivery; F41.9 Anxiety disorder, unspecified; F32.A Depression, unspecified; J45.909 Unspecified asthma, uncomplicated; Z86.16 Personal history of COVID-19
CPT/HCPCS: 36415; 59025; 59409; 85027; 86592; 86850; 86900; 86901; A9270-GY; J2001; J2300; J2590; J7120

== ENCOUNTER 2023-09-10 17:45 | Emergency (ER) | payer MEDICAID ==
[2023-09-10] MEDS ORDERED: Lidocaine 1% 20 ML MDV INJECT ONE (18:12)
[2023-09-10 20:20] VITALS: BP 129/80; PULSE 64
== END 2023-09-10 19:40 | disposition home or self-care (01) ==
LOC: JD.ED 17:45
DX: S01.81XA Laceration without foreign body of other part of head, initial encounter (principal); T24.021A Burn of unspecified degree of right knee, initial encounter; J45.909 Unspecified asthma, uncomplicated; F17.210 Nicotine dependence, cigarettes, uncomplicated; Z86.16 Personal history of COVID-19; Z88.8 Allergy status to other drugs, medicaments and biological substances; Z91.012 Allergy to eggs; Z91.011 Allergy to milk products; W01.198A Fall on same level from slipping, tripping and stumbling with subsequent striking against other object, initial encounter; Y92.009 Unspecified place in unspecified non-institutional (private) residence as the place of occurrence of the external cause
CPT/HCPCS: 12013; 99283; J3490

== ENCOUNTER 2025-03-07 07:17 | Inpatient (IN) | payer MEDICAID ==
[2025-03-07] MEDS ORDERED: Lidocaine 1% 50 ML MDV INJECT PRN (07:22)
[2025-03-07] MEDS ORDERED: Ondansetron 4 MG/2 ML SDV IVPUSH PRN (07:22)
[2025-03-07] MEDS ORDERED: Sodium Chloride 0.9% 10 ML Syringe FLUSH PRN (07:22)
[2025-03-07] MEDS ORDERED: Acetaminophen 325 MG Tab PO PRN ×2 (07:22→20:42)
[2025-03-07 07:47] LABS: BASOPHILS PERCENT AUTO 0.5 % (0.0-1.0); EOSINOPHILS ABSOLUTE AUTO 0.2 K/mm3 (0.0-0.4); EOSINOPHILS PERCENT AUTO 2.3 % (0.0-6.0); HEMATOCRIT 36.1 % (37.0-47.0); HEMOGLOBIN 12.3 gm/dl (12.0-16.0); IMMATURE GRAN ABSOLUTE AUTO 0.04 K/mm3 (0.00-0.05); IMMATURE GRAN PERCENT AUTO 0.5 % (0.0-0.4); LYMPHOCYTES ABSOLUTE AUTO 1.7 K/mm3 (1.0-4.8); MEAN CORPUSCULAR HEMOGLOBIN 29.9 pg (28.0-32.0); MEAN CORPUSCULAR HGB CONC 34.1 g/dl (32.0-36.0); MEAN CORPUSCULAR VOLUME 87.6 fl (83.0-99.0); MEAN PLATELET VOLUME 10.7 fl (9.4-12.3); MONOCYTES ABSOLUTE AUTO 0.7 K/mm3 (0.0-0.8); MONOCYTES PERCENT AUTO 8.4 % (0.0-8.0); NEUTROPHILS ABSOLUTE AUTO 5.1 K/mm3 (1.8-7.7); NEUTROPHILS PERCENT AUTO 66.3 % (41.0-71.0); PLATELET COUNT,PLT 310 K/mm3 (150-400); RED BLOOD CELL COUNT 4.12 M/mm3 (4.10-5.30); WHITE BLOOD CELL COUNT,WBC 7.76 K/mm3 (3.9-11.3)
[2025-03-07] MEDS: Lactated Ringers 1,000 ML IV SCH (14:00)
[2025-03-07] MEDS: Oxytocin/0.9 % Sodium Chloride 30 UNIT/500 ML BAG IV SCH ×2 (14:00→21:04)
[2025-03-07] MEDS: Nalbuphine 10 MG/1 ML Vial IVPUSH PRN (17:22)
[2025-03-07] MEDS ORDERED: Witch Hazel Medicated Pads 40/Jar TOP PRN (20:42)
[2025-03-07] MEDS ORDERED: Benzocaine/Menthol 20%-0.5% Spray 78 GM Cannister TOP PRN (20:42)
[2025-03-07] MEDS ORDERED: Docusate Sodium 100 MG Cap PO PRN (20:42)
[2025-03-07] MEDS: Ibuprofen 600 MG Tab PO SCH (21:03)
[2025-03-08] MEDS: Methylergonovine 0.2 MG/1 ML Amp IM ONE (01:23)
[2025-03-08] MEDS ORDERED: Naloxone 0.4 MG/ML SDV IVPUSH PRN (01:39)
[2025-03-08] MEDS: fentaNYL 100 MCG/2 ML SDV IVPUSH ONE (01:52)
[2025-03-08] MEDS: Oxytocin/0.9 % Sodium Chloride 30 UNIT/500 ML BAG IV SCH (01:55)
[2025-03-08] MEDS: Ketorolac 30 MG/ML SDV IVPUSH ONE (03:01)
[2025-03-08] MEDS ORDERED: ESCITALOPRAM OXALATE 10 MG PO SCH (09:00)
[2025-03-08] MEDS: Ibuprofen 600 MG Tab PO PRN (09:21)
[2025-03-08] MEDS: Sodium Chloride 0.9% 250 ML ONE (16:55)
[2025-03-08] MEDS: Citalopram 20 MG Tab PO SCH (16:55)
[2025-03-08] MEDS: Sodium Chloride 0.9% 10 ML Syringe FLUSH SCH (16:57)
[2025-03-08 21:27] VITALS: BP 131/71; PULSE 77
== END 2025-03-08 21:13 | disposition home or self-care (01) | DRG 807 ==
LOC: JD.OB 07:17 → OBSVTOIN 19:59 → JD.OB 20:00
PROVIDERS: ADMIT Obstetrics & Gynecology; ATTEND Obstetrics & Gynecology
PROC: 10E0XZZ Delivery of Products of Conception, External Approach (ICD-10-PCS; principal; 2025-03-07)
PROC: 10907ZC Drainage of Amniotic Fluid, Therapeutic from Products of Conception, Via Natural or Artificial Opening (ICD-10-PCS; principal; 2025-03-07)
DX: O99.344 Other mental disorders complicating childbirth (principal); Z37.0 Single live birth; F41.9 Anxiety disorder, unspecified; Z3A.38 38 weeks gestation of pregnancy; Z79.82 Long term (current) use of aspirin; Z79.899 Other long term (current) drug therapy; Z86.16 Personal history of COVID-19; Z87.891 Personal history of nicotine dependence
CPT/HCPCS: 36415; 59025; 59409; 85025; 86592; 86850; 86900; 86901; A9270-GY; J1885; J2210; J2300; J3010; J7120; J7999